=== PATIENT | female | born 1965 | race Caucasian/White ===

== ENCOUNTER 2020-10-02 12:03 | Outpatient (REF) | payer OTHER, SELFPAY | END 2020-10-02 12:04 | disposition home or self-care (01) | LOC: HO.WFDLNP 12:03 | PROVIDERS: Visit Provider Internal Medicine | DX: Z20.828 Contact with and (suspected) exposure to other viral communicable diseases (principal) | CPT/HCPCS: U0003 ==

== ENCOUNTER 2021-04-13 06:47 | Outpatient (REF) | payer OTHER, SELFPAY ==
[2021-04-13 12:08] LABS: MANUAL DIFF FLAG NO
[2021-04-13 12:20] LABS: Basophils Absolute Auto 0.1 X10*3/uL (0.0-0.2); Basophils Percent Auto 1.6 % (0-2); Eosinophils Absolute Auto 0.1 X10*3/uL (0.0-0.4); Eosinophils Percent Auto 2.1 % (0-4); Hematocrit 46.2 % (37-47); Hemoglobin 13.9 g/dl (12.0-16.0); Imm Gran Abs Auto 0.02 X10*3/uL (0.00-0.03); Imm Gran Pct Auto 0.5 % (0.0-0.4); Lymphocytes Absolute Auto 1.3 X10*3/uL (1.2-4.9); Lymphocytes Percent Auto 30.6 % (20-40); Mean Corpuscular HGB Conc 30.1 g/dl (31.0-35.0); Mean Corpuscular Hemoglobin 30.2 pg (27.0-33.0); Mean Corpuscular Volume 100.4 fL (80-98); Mean Platelet Volume 12.2 fL (9.4-12.3); Monocytes Absolute Auto 0.4 X10*3/uL (0.1-1.2); Monocytes Percent Auto 8.6 % (2-11); Neutrophils Absolute Auto 2.4 X10*3/uL (2.0-8.3); Neutrophils Percent Auto 56.6 % (45-73); Platelet Count 258 X10*3/uL (160-400); Red Cell Distribution Width 11.8 % (11.0-16.0); White Blood Count 4.3 X10*3/uL (4.8-10.8)
[2021-04-13 12:44] LABS: Alanine Aminotransferase 16 U/L (0-31); Albumin Level 4.3 g/dL (3.5-5.0); Alkaline Phosphatase 40 U/L (39-117); Anion Gap 13 (12-20); Aspartate Amino Transferase 17 U/L (5-31); Bilirubin Total 0.6 mg/dL (0.0-1.0); Blood Urea Nitrogen 15 mg/dL (9-16); Calcium 9.2 mg/dL (8.4-10.2); Carbon Dioxide 25 mmol/L (22-29); Chloride 108 mmol/L (96-108); Cholesterol 200 mg/dL; Estimated Glomerular Filt Rate > 60; Glucose Fasting 93 mg/dL (60-99); HDL Cholesterol 38 mg/dL; LDL Cholesterol Calculated 138 mg/dl; Potassium 4.8 mmol/L (3.3-5.1); Sodium 141 mmol/L (135-145); Total Protein 7.3 g/dL (6.5-8.0); Triglycerides 124 mg/dL
[2021-04-13 12:47] LABS: Vitamin D 25-OH Total 46.2 ng/mL (>30)
== END 2021-04-13 06:48 | disposition home or self-care (01) ==
LOC: HO.HMGCLDS 06:47
PROVIDERS: PCP Internal Medicine; Visit Provider Internal Medicine
DX: I10 Essential (primary) hypertension (principal); E78.5 Hyperlipidemia, unspecified; E55.9 Vitamin D deficiency, unspecified
CPT/HCPCS: 36415; 80053; 80061; 82306; 85025

== ENCOUNTER 2021-10-22 06:03 | Outpatient (REF) | payer BC, SELFPAY ==
[2021-10-22 12:31] LABS: Alanine Aminotransferase 19 U/L (0-31); Anion Gap 11 (12-20); Aspartate Amino Transferase 16 U/L (5-31); Blood Urea Nitrogen 23 mg/dL (9-16); Calcium 9.5 mg/dL (8.4-10.2); Carbon Dioxide 25 mmol/L (22-29); Chloride 108 mmol/L (96-108); Cholesterol 185 mg/dL; Estimated Glomerular Filt Rate 57; Glucose Fasting 105 mg/dL (60-99); HDL Cholesterol 38 mg/dL; LDL Cholesterol Calculated 121 mg/dl; Potassium 4.2 mmol/L (3.3-5.1); Sodium 140 mmol/L (135-145); Triglycerides 133 mg/dL
== END 2021-10-22 06:04 | disposition home or self-care (01) ==
LOC: HO.HMGCLDS 06:03
PROVIDERS: PCP Internal Medicine; Visit Provider Internal Medicine
DX: E66.09 Other obesity due to excess calories (principal); E55.9 Vitamin D deficiency, unspecified; E78.5 Hyperlipidemia, unspecified; I10 Essential (primary) hypertension; Z68.33 Body mass index [BMI] 33.0-33.9, adult
CPT/HCPCS: 36415; 80048; 80061; 82306; 84450; 84460

== ENCOUNTER 2021-11-10 08:51 | Emergency (ER) | payer BC, SELFPAY ==
--- NOTE | ~2021-11-10 | CT_ITS ---
EXAMINATION: CT ABDOMEN AND PELVIS WITH CONTRAST CLINICAL INFORMATION: epigastric abd pain, elevated lipase COMPARISON: None TECHNIQUE: Multidetector volumetric images were obtained from the superior aspect of the liver through the pubic symphysis following administration 85 mL of Omnipaque 350 intravenous contrast. Sagittal and coronal reformatted images were obtained on the technologist's workstation. Oral contrast: No This CT examination was performed using dose optimization techniques as appropriate, variously including the following: *Automated exposure control *Adjustment of mA and/or kV according to patient size (this includes techniques or standardized protocols for targeted exams where dose is matched to indication/reason for exam; i.e. extremities or head) *Use of iterative reconstruction technique DLP: 598 mGy-cm FINDINGS: LUNG BASES: The visualized lung bases are unremarkable. LIVER, GALLBLADDER, AND BILIARY TREE: The liver is normal in size, shape, and attenuation. No focal hepatic lesion or biliary ductal dilatation is present. The gallbladder is unremarkable with no evidence of radiopaque gallstones, gallbladder wall thickening, or obvious pericholecystic inflammatory changes. PANCREAS: There is very subtle peripancreatic fat stranding which could be due to mild interstitial pancreatitis. No surrounding fluid collections or abnormal parenchymal attenuation. No ductal dilatation or appreciable pancreatic lesions. No pancreatic calcifications. SPLEEN: Unremarkable. ADRENAL GLANDS: Unremarkable. KIDNEYS AND URETERS: The kidneys are normal in size, shape, and attenuation. No hydronephrosis, hydroureter, or calculi seen. No perinephric stranding. A subcentimeter (5 mm) focus of hypoattenuation at the lower pole of the right kidney is too small to characterize but statistically favored to correspond to a cyst. No imaging follow-up recommended. Trace contrast material is present within the renal collecting systems and limits sensitivity for punctate calculi. BLADDER: Unremarkable. GASTROINTESTINAL TRACT: Stomach, small bowel, and colon are normal in caliber. No bowel wall thickening or surrounding inflammatory changes. Appendix is normal. No intraperitoneal free fluid or free air. Mild diverticulosis is evident in the descending colon. ABDOMINAL WALL: No significant hernia is appreciated. LYMPH NODES: Normal. VASCULAR: Unremarkable. PELVIC VISCERA: An IUD is appropriately situated within the uterus. Uterus is normal in size and contour. No adnexal lesions are identified. OSSEOUS STRUCTURES: Moderate to severe degenerative spondylosis in the lower lumbar spine with prominent posterior disc osteophyte complexes at L4-L5 and L5-S1. Mild to moderate osteophytes in the hips. Mild left convex lumbar scoliosis CT/CT abdomen pelvis w con IMPRESSION: Very subtle peripancreatic fat stranding which could be due to mild interstitial pancreatitis. No peripancreatic fluid collections, ductal dilatation, or calcifications. Mild colonic diverticulosis without evidence of acute diverticulitis. Fleischner guidelines were followed.
[2021-11-10 10:01] VITALS: BP 139/95; PULSE 79; RESP 18; TEMP 36.9; O2SAT 94; BMI 35.1
[2021-11-10 12:28] LABS: Appearance Urine CLEAR; Color Urine YELLOW; Glucose Urine UA NEG (NEG); Leukocyte Esterase Urine NEG (NEG); Nitrite Urine NEG (NEG); Specific Gravity - Urine <= 1.005 (1.005-1.025); Urine Blood NEG (NEG); Urine Ketones NEG (NEG); Urine Protein NEG (NEG-TRACE)
--- NOTE | 2021-11-10 12:41 | ED.ABDPAIN ---
HPI - Abdominal Pain General Chief Complaint: Abdominal Pain Stated Complaint: abd pain Time Seen by Provider: 11/10/21 12:40 Source: patient Mode of arrival: ambulatory Limitations: no limitations History of Present Illness HPI narrative: 56 y/o female with history of HTN, HLD, chronic low back pain due to DJD, bilateral carpal tunnel syndrome who presents to the ER from home c/o upper abdominal pain and bloating for the last 3 days. She has been nauseated but not vomited. She describes the pain as burning and gnawing. At times it is constant and lasts a while and other times it comes and goes. MD elicited complaint: abdominal pain Pertinent past history: none Onset (ago): day(s) (3) Pain Consistency: constant Location: epigastric Severity: moderate Quality: aching Radiation: none Related Data Home Medications Medication Instructions Recorded Confirmed glucosamine [id number] 1 tab PO DAILY 04/17/21 04/17/21 pramod 1,500 mg-400 unit-100 mg tablet (Osteo Bi-Flex (5-Loxin)) Previous Rx's Medication Instructions Recorded celecoxib 400 mg capsule (Celebrex) 400 mg PO DAILY #30 cap 10/11/21 cholecalciferol (vitamin D3) 50 50 mcg PO DAILY #90 cap 10/26/21 mcg (2,000 unit) capsule lisinopril 20 mg tablet 20 mg PO DAILY #90 tab 10/26/21 phentermine 37.5 mg capsule 37.5 mg PO DAILY #30 cap 10/26/21 simvastatin 10 mg tablet 10 mg PO BEDTIME #90 tab 10/26/21 hydrocodone 5 mg-acetaminophen 325 1 tab PO Q4H PRN #10 tab 11/10/21 mg tablet Allergies Allergy/AdvReac Type Severity Reaction Status Date / Time No Known Allergies Allergy Verified 11/10/21 10:01 Physical Exam Vital Signs: Vital Signs: Last Vital Signs Temp 98.9 F 11/10/21 13:24 Pulse 73 11/10/21 13:24 Resp 17 11/10/21 13:24 BP 144/66 H 11/10/21 13:24 Pulse Ox 97 11/10/21 13:24 BMI result Body Mass Index 35.1 Course Course Course Narrative: 56-year-old female with a history of obesity, HTN, HLD who presents to the ER with 3 days of upper abdominal pain that radiates to her back as well as some bloating and nausea. She denies any fevers, right upper quadrant pain, vomiting. She states the pain radiates up into the chest and around to her back. He has burning and gnawing, possible GERD or gastritis. May also be consistent with pancreatitis so will check LFTs and lipase. Will give GI cocktail and reassess. Will check labs an EKG. Doubt ACS. Reevaluation(s) Reevaluation #1: LFTs are normal. CBC is normal. Her lipase is elevated 436. She is a nondrinker and reports only being on lisinopril and Zetia for her home medications. She has not been on any recent antibiotics and does not take any supplements. Will get a CT scan for further evaluation of pancreatitis. She reports ongoing pain after GI cocktail will give a dose of IV morphine. Reevaluation #2: CT scan is showing a very subtle peripancreatic fat stranding which could be due to mild interstitial pancreatitis. There are no peripancreatic fluid collections or dilatation. Her biliary tree and gallbladder are normal without gallstones. Etiology of her mild pancreatitis is unknown. At this time her pain is well controlled and she would like to be discharged home. We discussed the diagnosis and management and need for follow-up. We also discussed if she needs to come back to the ER for worsening symptoms. Advised to start a clear liquid diet and slowly advanced over the next few days as tolerated. Stable for DC with pain control and GI follow-up. MDM - Abdominal Pain Medical Records Attestation: I reviewed the patient's medical records. Lab Data Result diagrams: 11/10/21 14:08 11/10/21 14:08 Labs: Lab Results 11/10/21 11/10/21 11/10/21 Range/Units 12:18 14:08 14:08 WBC 7.8 (4.8-10.8) X10*3/uL RBC 4.73 (4.20-5.50) X10*6/uL Hgb 14.6 (12.0-16.0) g/dl Hct 46.0 (37.0-47.0) % MCV 97.3 (80.0-98.0) fL MCH 30.9 (27.0-33.0) pg MCHC 31.7 (31.0-35.0) g/dl RDW 11.7 (11.0-16.0) % Plt Count 261 (160-400) X10*3/uL MPV 12.0 (9.4-12.3) fL Immature Gran % (Auto) 0.4 (0.0-0.4) % Neut % (Auto) 72.3 (45-73) % Lymph % (Auto) 19.9 L (20-40) % [place] % (Auto) 5.7 (2-11) % Eos % (Auto) 1.1 (0-4) % Baso % (Auto) 0.6 (0-2) % Lymph # (Auto) 1.6 (1.2-4.9) X10*3/uL [place] # (Auto) 0.5 (0.1-1.2) X10*3/uL Eos # (Auto) 0.1 (0.0-0.4) X10*3/uL Baso # (Auto) 0.1 (0.0-0.2) X10*3/uL Abs Immat Gran (auto) 0.03 (0.00-0.03) X10*3/uL Absolute Neuts (auto) 5.7 (2.0-8.3) x10*3/uL Absolute Nucleated RBC 0.000 (0.0-0.012) X10*3/uL Nucleated RBC % (auto) 0.0 (0.0-0.2) /100WBC Sodium 141 (135-145) mmol/L Potassium 4.0 (3.3-5.1) mmol/L Chloride 106 (96-108) mmol/L Carbon Dioxide 28 (22-29) mmol/L Anion Gap 11 L (12-20) BUN 18 H (9-16) mg/dL Creatinine 0.91 (0.5-1.4) mg/dL Estim Creat Clear Calc 71.5 Estimated GFR > 60 Random Glucose 105 (60-115) mg/dL Calcium 9.5 (8.4-10.2) mg/dL Magnesium 2.2 (1.6-2.6) mg/dL Total Bilirubin 0.8 (0.0-1.0) mg/dL Direct Bilirubin 0.3 (0.0-0.5) mg/dL AST 13 (5-31) U/L ALT 13 (0-31) U/L Alkaline Phosphatase 38 L (39-117) U/L Total Protein 7.6 (6.5-8.0) g/dL Albumin 4.2 (3.5-5.0) g/dL Lipase 436 H (8-78) U/L Urine Color YELLOW Urine Appearance CLEAR Urine pH 6.0 (5.0-8.0) Ur Specific [place] <= 1.005 (1.005-1.025) Urine Protein NEG (NEG-TRACE) MG/DL Urine Glucose (UA) NEG (NEG) MG/DL Urine Ketones NEG (NEG) MG/DL Urine Blood NEG (NEG) Urine Nitrite NEG (NEG) Ur Leukocyte Esterase NEG (NEG) COVID-19 (ANDRY) (Negative) COVID-19 Clin Com 11/10/21 Range/Units 14:08 WBC (4.8-10.8) X10*3/uL RBC (4.20-5.50) X10*6/uL Hgb (12.0-16.0) g/dl Hct (37.0-47.0) % MCV (80.0-98.0) fL MCH (27.0-33.0) pg MCHC (31.0-35.0) g/dl RDW (11.0-16.0) % Plt Count (160-400) X10*3/uL MPV (9.4-12.3) fL Immature Gran % (Auto) (0.0-0.4) % Neut % (Auto) (45-73) % Lymph % (Auto) (20-40) % [place] % (Auto) (2-11) % Eos % (Auto) (0-4) % Baso % (Auto) (0-2) % Lymph # (Auto) (1.2-4.9) X10*3/uL [place] # (Auto) (0.1-1.2) X10*3/uL Eos # (Auto) (0.0-0.4) X10*3/uL Baso # (Auto) (0.0-0.2) X10*3/uL Abs Immat Gran (auto) (0.00-0.03) X10*3/uL Absolute Neuts (auto) (2.0-8.3) x10*3/uL Absolute Nucleated RBC (0.0-0.012) X10*3/uL Nucleated RBC % (auto) (0.0-0.2) /100WBC Sodium (135-145) mmol/L Potassium (3.3-5.1) mmol/L Chloride (96-108) mmol/L Carbon Dioxide (22-29) mmol/L Anion Gap (12-20) BUN (9-16) mg/dL Creatinine (0.5-1.4) mg/dL Estim Creat Clear Calc Estimated GFR Random Glucose (60-115) mg/dL Calcium (8.4-10.2) mg/dL Magnesium (1.6-2.6) mg/dL Total Bilirubin (0.0-1.0) mg/dL Direct Bilirubin (0.0-0.5) mg/dL AST (5-31) U/L ALT (0-31) U/L Alkaline Phosphatase (39-117) U/L Total Protein (6.5-8.0) g/dL Albumin (3.5-5.0) g/dL Lipase (8-78) U/L Urine Color Urine Appearance Urine pH (5.0-8.0) Ur Specific [place] (1.005-1.025) Urine Protein (NEG-TRACE) MG/DL Urine Glucose (UA) (NEG) MG/DL Urine Ketones (NEG) MG/DL Urine Blood (NEG) Urine Nitrite (NEG) Ur Leukocyte Esterase (NEG) COVID-19 (ANDRY) Negative (Negative) COVID-19 Clin Com See Note ECG Data Attestation: I personally reviewed and interpreted this ECG as follows: ECG interpretation date: 11/10/21 ECG interpretation time: 17:19 Prior ECG tracings: available for review Interpretation: Normal sinus rhythm, heart rate 70 beats per minute, normal TN interval, normal QTC, no ST segment elevations or depressions. Normal ECG. Critical Care Time Critical Care Time Critical Care Time: No Discharge Plan Discharge Clinical Impression: Acute pancreatitis Patient Disposition: Home, Self-Care Instructions: Pancreatitis (ED) Additional Instructions: Your labs and CT scan today showed evidence of mild pancreatitis. Cause is unknown at this time. Recommend clear liquid diet for the next 24-48 hours. Slowly introduced bland and low-fat foods as tolerated. Recommend following up with GI this week. Name & number below. Follow-up with your doctor this week as well. If you develop new or worsening symptoms call 911 or come back to the ER for further evaluation. Prescriptions: New hydrocodone-acetaminophen 5-325 mg tablet 1 tab PO Q4H PRN (Reason: pain) Qty: 10 RF: 0 No Action celecoxib [Celebrex] 400 mg capsule 400 mg PO DAILY Qty: 30 RF: 4 [id number] serr [Osteo Bi-Flex (5-Loxin)] 1,500-400-100 mg-unit-mg tablet 1 tab PO DAILY RF: 0 cholecalciferol (vitamin D3) 50 mcg (2,000 unit) capsule 50 mcg PO DAILY Qty: 90 RF: 1 lisinopril 20 mg tablet 20 mg PO DAILY Qty: 90 RF: 2 simvastatin 10 mg tablet 10 mg PO BEDTIME Qty: 90 RF: 2 phentermine 37.5 mg capsule 37.5 mg PO DAILY Qty: 30 RF: 0 Referrals: Ria Tejada MD [Physician] - 2 days (Idiopathic pancreatitis) [facility] Past Medical History Medical History Carpal tunnel syndrome, bilateral Dyslipidemia Essential hypertension Multilevel degenerative disc disease Obesity Vitamin D deficiency Surgical History History of ankle surgery History of back surgery History of lumbosacral spine surgery Family History Family History Father Myocardial infarction CVD (cardiovascular disease) Mother Lymphoma Maternal Grandfather No problems noted. Maternal Grandmother No problems noted. Paternal Grandfather No problems noted. Paternal Grandmother No problems noted. Brother No problems noted. Brother No problems noted. Brother No problems noted. Sister No problems noted. Son No problems noted. Social History Social History Housing: Apartment Alcohol intake: never Patient Tobacco Use Status: Former Tobacco user Years Smoked: 11 yrs e-Cigarette/Vaping Use: Never Used Second Hand Smoke Exposure: No Use of substances other than those prescribed or required for medical reasons: No Advance Directives: No Advance Directives Information Provided: No service: No Current occupational status: employed Current occupation: [employer] Current occupational exposures/hazards: No
--- NOTE | 2021-11-10 12:49 | ECG_ITS ---
Test Reason : abd pain Blood Pressure : / mmHG Vent. Rate : 070 BPM Atrial Rate : 070 BPM P-R Int : 142 ms QRS Dur : 088 ms QT Int : 376 ms P-R-T Axes : 040 -04 037 degrees QTc Int : 406 ms Normal sinus rhythm Normal ECG No previous ECGs available Referred By: Lisa Swanson Electronically Signed By:Sagar Samayoa
[2021-11-10] MEDS: Omeprazole 40 MG CAPSULE.DR PO (13:19)
[2021-11-10] MEDS: Magnesium Hydrox/Alum Hydrox 30 ML ORAL.SUSP PO (13:20)
[2021-11-10] MEDS: Lidocaine HCl Viscous 2 % 15 ML SOLUTION MUCOUS MEM (13:20)
[2021-11-10] MEDS: PHENobarb/Hyoscy/Atropine/Scop 10 ML ELIXIR PO (13:20)
[2021-11-10 13:24] VITALS: BP 144/66; PULSE 73; RESP 17; TEMP 37.2; O2SAT 97
[2021-11-10 14:13] LABS: MANUAL DIFF FLAG NO
[2021-11-10 14:16] LABS: Basophils Absolute Auto 0.1 X10*3/uL (0.0-0.2); Basophils Percent Auto 0.6 % (0-2); Eosinophils Absolute Auto 0.1 X10*3/uL (0.0-0.4); Eosinophils Percent Auto 1.1 % (0-4); Hemoglobin 14.6 g/dl (12.0-16.0); Imm Gran Abs Auto 0.03 X10*3/uL (0.00-0.03); Imm Gran Pct Auto 0.4 % (0.0-0.4); Lymphocytes Absolute Auto 1.6 X10*3/uL (1.2-4.9); Lymphocytes Percent Auto 19.9 % (20-40); Mean Corpuscular HGB Conc 31.7 g/dl (31.0-35.0); Mean Corpuscular Hemoglobin 30.9 pg (27.0-33.0); Mean Corpuscular Volume 97.3 fL (80.0-98.0); Monocytes Absolute Auto 0.5 X10*3/uL (0.1-1.2); Monocytes Percent Auto 5.7 % (2-11); Neutrophils Absolute Auto 5.7 x10*3/uL (2.0-8.3); Neutrophils Percent Auto 72.3 % (45-73); Platelet Count 261 X10*3/uL (160-400); Red Blood Count 4.73 X10*6/uL (4.20-5.50); Red Cell Distribution Width 11.7 % (11.0-16.0); White Blood Count 7.8 X10*3/uL (4.8-10.8)
[2021-11-10 14:32] LABS: Alanine Aminotransferase 13 U/L (0-31); Albumin Level 4.2 g/dL (3.5-5.0); Alkaline Phosphatase 38 U/L (39-117); Anion Gap 11 (12-20); Aspartate Amino Transferase 13 U/L (5-31); Bilirubin Direct 0.3 mg/dL (0.0-0.5); Bilirubin Total 0.8 mg/dL (0.0-1.0); Blood Urea Nitrogen 18 mg/dL (9-16); Calcium 9.5 mg/dL (8.4-10.2); Carbon Dioxide 28 mmol/L (22-29); Chloride 106 mmol/L (96-108); Creatinine Clr Calc Pharmacy 71.5; Estimated Glomerular Filt Rate > 60; Glucose Random 105 mg/dL (60-115); Lipase 436 U/L (8-78); Magnesium 2.2 mg/dL (1.6-2.6); Sodium 141 mmol/L (135-145); Total Protein 7.6 g/dL (6.5-8.0)
[2021-11-10 14:34] LABS: COVID-19 Test Negative (Negative)
[2021-11-10] MEDS: iohexoL 300 MG/ML 100 ML INFUS..BTL 85 ML IV (15:15)
[2021-11-10] MEDS: 0.9 % Sodium Chloride 1,000 ML 999 ML IVCONT (15:35)
[2021-11-10] MEDS: Morphine Sulfate 4 MG/ML CARTRIDGE IVPUSH (15:36)
== END 2021-11-10 17:48 | disposition home or self-care (01) ==
PROVIDERS: Physician Assistant; Emergency Provider Emergency Medicine; PCP Internal Medicine
DX: K85.90 Acute pancreatitis without necrosis or infection, unspecified (principal); R10.13 Epigastric pain; Z79.899 Other long term (current) drug therapy; Z20.822 Contact with and (suspected) exposure to COVID-19
CPT/HCPCS: 36415; 74177; 80048; 80076; 81003; 83690; 83735; 85025; 87635; 93005; 96361; 96374; 99284; J2270; Q9967

== ENCOUNTER 2023-01-27 07:06 | Outpatient (REF) | payer BC, SELFPAY ==
[2023-01-27 12:52] LABS: Alanine Aminotransferase 15 U/L (0-31); Anion Gap 13 (12-20); Aspartate Amino Transferase 12 U/L (5-31); Blood Urea Nitrogen 24 mg/dL (9-16); Calcium 9.2 mg/dL (8.4-10.2); Carbon Dioxide 24 mmol/L (22-29); Chloride 109 mmol/L (96-108); Cholesterol 209 mg/dL; Estimated Glomerular Filt Rate 51; Glucose Fasting 137 mg/dL (60-99); HDL Cholesterol 39 mg/dL; LDL Cholesterol Calculated 133 mg/dl; Potassium 4.4 mmol/L (3.3-5.1); Sodium 142 mmol/L (135-145); Triglycerides 189 mg/dL; Vitamin D 25-OH Total 26.9 ng/mL (>30)
== END 2023-01-27 07:07 | disposition home or self-care (01) ==
LOC: HO.HMGCLDS 07:06
PROVIDERS: PCP Internal Medicine; Visit Provider Internal Medicine
DX: E78.5 Hyperlipidemia, unspecified (principal); I10 Essential (primary) hypertension; Z78.0 Asymptomatic menopausal state
CPT/HCPCS: 36415; 80048; 80061; 82306; 84450; 84460

== ENCOUNTER 2023-06-19 13:25 | Outpatient (AMB) | payer BC, SELFPAY ==
--- NOTE | 2023-06-19 13:29 | A.OFFPC_ITS ---
Vital Signs 06/19/23 13:30 Height 5 ft 2 in Weight 199 lb BMI 36.4 BP 132/80 Blood Pressure Location Rt brachial Position Sitting Pulse 80 Pulse Source Pulse Oximeter Pulse Oximetry (%) 95 Oxygen Delivery Method Room Air Intake Visit Reasons: follow up medication Intake Note: Pt is here today to f/u med Allergies No Known Allergies Allergy (Verified 06/19/23 13:52) Medication List - Last Reconciled 06/19/23 by Chelsea Bar MD celecoxib (Celebrex) 400 mg PO DAILY cholecalciferol (vitamin D3) 1,250 mcg PO QWEEK 3 months lisinopril 20 mg PO DAILY simvastatin 20 mg PO BEDTIME Tobacco use date assessed: 06/19/23 Dental Screening Dental Screen Date: 06/19/23 Did you have a dental visit in the last 12 months?: No Was dental information given to patient?: Patient declined HPI follow up medication 2 HPI Details 57-year-old lady here today for follow-up on her diabetes mellitus, hypertension dyslipidemia. Last hemoglobin A1c at in March of 2023 was at 5.9%. She is currently not on any medication to treat her diabetes and is trying to control it through diet and exercise and lifestyle modification. She is also currently taking simvastatin and vitamin-D 3 supplements as well as lisinopril, with blood pressure controlled at present time. Has been feeling well with no complaints at present time. [facility] Medical History Carpal tunnel syndrome, bilateral Dyslipidemia Essential hypertension Multilevel degenerative disc disease Obesity Type 2 diabetes mellitus without complication, with no history of insulin use Vitamin D deficiency Surgical History History of ankle surgery History of back surgery History of lumbosacral spine surgery Family History Father Myocardial infarction CVD (cardiovascular disease) Mother Lymphoma Maternal Grandfather No problems noted. Maternal Grandmother No problems noted. Paternal Grandfather No problems noted. Paternal Grandmother No problems noted. Brother No problems noted. Brother No problems noted. Brother No problems noted. Sister No problems noted. Son No problems noted. Social History Housing: Apartment Alcohol intake: never Patient Tobacco Use Status: Former Tobacco user Years Smoked: 11 yrs e-Cigarette/Vaping Use: Never Used Second Hand Smoke Exposure: No service: No Current occupational status: employed Current occupation: [employer] Current occupational exposures/hazards: No Cognitive needs: No Hearing needs: No Vision needs: No Questionnaire Thrive Questionnaire Date Thrive assessed: 03/18/23 RUTH-7 AMB Questionnaire RUTH-7 Date RUTH - 7 assessed: 03/18/23 Source: Developed by Drs. Cristobal Blair, Rhonda Kitchen, Danny Tam and colleagues, with an educational louis from [employer]. Review of Systems Const Denies body aches, Denies fever(s), Denies headache(s) and Denies weakness Eyes Details: Goes to [facility] for her routine eye exam, complains of left eye frequently tearing up ENT Denies dizziness, Denies headache(s), Denies nasal congestion, Denies nasal discharge and Denies sore throat Card Denies chest pain, Denies lightheadedness, Denies palpitations and Denies dyspnea Resp Denies chest congestion, Denies cough and Denies dyspnea GI Denies abdominal pain, Denies change in bowel habits and Denies heartburn Neuro Denies dizziness, Denies headache(s) and Denies weakness Psych Reports no additional complaints Endo Denies polydipsia, Denies polyuria and Denies palpitations Physical exam (Primary Care) Vital Signs: Last Vital Signs Pulse 80 06/19/23 13:30 BP 132/80 06/19/23 13:30 Pulse Ox 95 06/19/23 13:30 Oxygen Delivery Method Room Air 06/19/23 13:30 BMI result Body Mass Index 36.4 Tobacco/Smoking Status: Tobacco use Status Tobacco use date assessed 06/19/23 06/19/23 13:34 Patient Tobacco Use Status Former Tobacco user 06/19/23 13:34 e-Cigarette/Vaping Use Never Used 06/19/23 13:34 Thrive Assessment: Date of Thrive Assessment Date Thrive assessed 03/18/23 06/19/23 13:34 Const General: healthy appearing and no acute distress Nutritional Appearance: obese Orientation/consciousness: patient oriented x3 Limitations: no limitations HENMT Ears: external ears normal, TM's normal bilaterally and EAC's normal Mouth: Normal oral and palatal mucosa present, oropharynx normal and moist mucous membranes Neck Neck: Yes full ROM, Yes no lymphadenopathy and Yes supple Thyroid: Thyroid normal Resp Auscultation: clear to auscultation bilaterally Cardio Rate: regular rate Rhythm: regular rhythm Heart sounds: S1 normal heart sound present and S2 normal heart sound present GI Inspection: Yes obesity Palpation (GI): Soft to palpation, nontender, no guarding and no masses Auscultation: normal bowel sounds General: Yes no CVA tenderness and Yes deferred Back/Spine/Pelvis Back: no CVA tenderness and No back tenderness Neuro General: patient oriented x3, gait normal, moves all extremities, no focal motor deficits and CN's II-XI intact bilaterally Extrem General: Yes normal to inspection, Yes full ROM, Yes no joint enlargement, Yes no calf tenderness and Yes normal gait Assessment and Plan Assessment & Plan (1) Type 2 diabetes mellitus without complication, with no history of insulin use: Code(s): E11.9 - Type 2 diabetes mellitus without complications Plan: Latest hemoglobin A1c from March 2023 was at 5.9%, currently of medications at present time, continue with weight loss, adherence to healthy eating habits, regular exercise. Repeat another hemoglobin A1c in a month, labs already ordered. Wanted to get her yearly flu shots, yearly diabetes retinopathy screening and inspect feet to check for any lesions. (2) Obesity: Code(s): E66.9 - Obesity, unspecified Qualifiers: Body mass index: BMI 33.0-33.9 Obesity classification: adult class 1 (BMI 30 - 34.9) Obesity type: due to excess calories Serious obesity comorbidity presence: without serious comorbidity Qualified Code(s): E66.09 - Other obesity due to excess calories; Z68.33 - Body mass index [BMI] 33.0-33.9, adult Plan: Discussed need to increase activity and wt reduction. Recommended focusing on improving your health instead of dieting. : Eat Mediterranean diet, limit foods high in fat, sugar, and calories, eat slowly, pay attention to portion sizes, plan your meals ahead of time, start regular physical activity 150 minutes of moderate intensity exercise or 90 minutes/week of vigorous exercise and increase water intake. (3) Vitamin D deficiency: Code(s): E55.9 - Vitamin D deficiency, unspecified Plan: Continue with taking vitamin-D 3 supplements, recheck vitamin-D level next month (4) Dyslipidemia: Code(s): E78.5 - Hyperlipidemia, unspecified Plan: Continue with simvastatin 20 mg at bedtime, in addition to adhering to healthy eating habits and getting regular exercise, recheck another fasting lipid panel in a month (5) Essential hypertension: Code(s): I10 - Essential (primary) hypertension Plan: Blood pressure at goal of less than 130/80. Continue with current medication. Reinforced importance of following a low sodium diet, getting regular exercise, and lowering stress levels. Coding Level of Care Code Est Pt Level 3 (18661) Diagnoses Type 2 diabetes mellitus without complication, with no history of insulin use E11.9 Obesity E66.09; Z68.33 Body mass index: BMI 33.0-33.9 Obesity classification: adult class 1 (BMI 30 - 34.9) Obesity type: due to excess calories Serious obesity comorbidity presence: without serious comorbidity Vitamin D deficiency E55.9 Dyslipidemia E78.5 Essential hypertension I10
[2023-06-19 13:30] VITALS: BP 132/80; PULSE 80; O2SAT 95; BMI 36.4
== END 2023-06-19 14:08 | disposition home or self-care (01) ==
PROVIDERS: PCP Internal Medicine; Visit Provider Internal Medicine
DX: E11.9 Type 2 diabetes mellitus without complications (principal); E66.09 Other obesity due to excess calories; Z68.33 Body mass index [BMI] 33.0-33.9, adult; E55.9 Vitamin D deficiency, unspecified; E78.5 Hyperlipidemia, unspecified; I10 Essential (primary) hypertension
CPT/HCPCS: 99213

== ENCOUNTER 2023-06-30 06:24 | Outpatient (REF) | payer BC, OTHER, SELFPAY ==
[2023-06-30 12:12] LABS: Estimated Average Glucose 123 mg/dL; Hemoglobin A1C 150.3286 umol/L; Hemoglobin A1c % 5.9 % (<6.0)
[2023-06-30 12:15] LABS: Alanine Aminotransferase 13 U/L (0-31); Albumin Level 4.1 g/dL (3.5-5.0); Alkaline Phosphatase 30 U/L (39-117); Anion Gap 11 (12-20); Aspartate Amino Transferase 15 U/L (5-31); Bilirubin Total 0.4 mg/dL (0.0-1.0); Blood Urea Nitrogen 30 mg/dL (9-16); Calcium 9.3 mg/dL (8.4-10.2); Carbon Dioxide 24 mmol/L (22-29); Chloride 109 mmol/L (96-108); Cholesterol 148 mg/dL (<200); Estimated Glomerular Filt Rate > 60; Glucose Fasting 103 mg/dL (60-99); HDL Cholesterol 37 mg/dL (>40); LDL Cholesterol Calculated 91 mg/dL (<100); Sodium 140 mmol/L (135-145); Total Protein 7.3 g/dL (6.5-8.0); Triglycerides 104 mg/dL (<150)
[2023-06-30 12:36] LABS: Vitamin D 25-OH Total 55.9 ng/mL (>30)
[2023-06-30 12:51] LABS: Microalbum/Creatinine Ratio Ur 5.1 ug/mg cr (<30)
== END 2023-06-30 06:25 | disposition home or self-care (01) ==
LOC: HO.HMGCLDS 06:24
PROVIDERS: PCP Internal Medicine; Visit Provider Internal Medicine
DX: E11.9 Type 2 diabetes mellitus without complications (principal); E55.9 Vitamin D deficiency, unspecified; E66.9 Obesity, unspecified; E78.5 Hyperlipidemia, unspecified; I10 Essential (primary) hypertension
CPT/HCPCS: 36415; 80053; 80061; 82043; 82306; 83036

== ENCOUNTER 2023-07-22 16:34 | Outpatient (AMB) | payer BC, SELFPAY ==
--- NOTE | 2023-07-22 16:31 | MHC.PC.OV ---
Intake Visit Reasons: Discuss weight loss options, ok per Dr Gilbert Intake Note: Pt is having a telehealth visit to discuss wgt loss options Allergies No Known Allergies Allergy (Verified 07/22/23 16:41) Medication List - Last Reconciled 07/22/23 by Chelsea Bar MD celecoxib (Celebrex) 400 mg PO DAILY lisinopril 20 mg PO DAILY simvastatin 20 mg PO BEDTIME Tobacco use date assessed: 07/22/23 Dental Screening Dental Screen Date: 07/22/23 Did you have a dental visit in the last 12 months?: No Was dental information given to patient?: Patient has dentist HPI Discuss weight loss options, ok per Dr Gilbert HPI Details 57-year-old lady with Dyslipidemia, hypertension, diet controlled diabetes mellitus, and obesity, here today complaining having difficulty losing her weight. She has been cutting back on lot on her carbs, eats a good breakfast, very light lunch and a very light supper, stays active and has only been able to lose maybe a couple of lb over the last several weeks. She would like to try taking phentermine again, was on it in the past given by her previous provider and was able to lose approximately 50 lb in 5 months while on the higher dose of phentermine. Denies having had any chest pain, no headache, no palpitations on the medication. COUNTS INCLUDE 234 BEDS AT THE [facility] Medical History (Updated 07/22/23 @ 16:55 by Chelsea Bar MD) Obesity (BMI 30-39.9) Type 2 diabetes mellitus without complication, with no history of insulin use Multilevel degenerative disc disease Carpal tunnel syndrome, bilateral Vitamin D deficiency Dyslipidemia Essential hypertension Surgical History History of lumbosacral spine surgery History of ankle surgery History of back surgery Family History Father Myocardial infarction CVD (cardiovascular disease) Mother Lymphoma Maternal Grandfather No problems noted. Maternal Grandmother No problems noted. Paternal Grandfather No problems noted. Paternal Grandmother No problems noted. Brother No problems noted. Brother No problems noted. Brother No problems noted. Sister No problems noted. Son No problems noted. 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 Cristobal Blair, Rhonda Kitchen, Danny Tam and colleagues, with an educational louis from [employer]. Review of Systems Const Denies fever(s), Denies headache(s) and Denies weakness Eyes Details: Goes to [facility] for her routine eye exam, complains of left eye frequently tearing up ENT Denies dizziness, Denies headache(s), Denies nasal congestion, Denies nasal discharge and Denies sore throat Card Denies chest pain, Denies lightheadedness, Denies palpitations and Denies dyspnea Resp Denies chest congestion, Denies cough and Denies dyspnea GI Denies abdominal pain, Denies change in bowel habits and Denies heartburn Reports no additional complaints Musc Reports back pain (Intermittent), Denies joint swelling and Reports stiffness Neuro Denies dizziness, Denies headache(s) and Denies weakness Psych Reports no additional complaints Endo Denies polydipsia, Denies polyuria and Denies palpitations Donnei/Lymph Reports no additional complaints Physical exam (Primary Care) Tobacco/Smoking Status: Tobacco use Status Tobacco use date assessed 07/22/23 07/22/23 16:32 Patient Tobacco Use Status Former Tobacco user 07/22/23 16:32 e-Cigarette/Vaping Use Never Used 07/22/23 16:32 Thrive Assessment: Date of Thrive Assessment Date Thrive assessed 03/18/23 07/22/23 16:32 Telehealth Telehealth Location of provider rendering services: practice address Location of patient: address on file Patient Identification confirmed using: Name, : Yes Telehealth method: video Patient verbally consented to treatment: Yes Patient verbally consented to billing insurance company: Yes Patient informed of any privacy concerns related to visit: Yes Minutes spent on Phone/Video with Pt.: 15 Results Reviewed Results Reviewed: ENTERED: 06/30/23 JEREMY KRISHNA: ORDERED: CMP Fast, Lipid Panel, Vitamin D 25-OH Test Result Flag Reference Site Sodium 140 135-145 mmol/L Potassium 4.0 3.3-5.1 mmol/L CL 109 H 96-108 mmol/L CO2 24 22-29 mmol/L Gap 11 L 12-20 BUN 30 H 9-16 mg/dL Creat 0.86 0.5-1.4 mg/dL EGFR > 60 NOTE: For -[place]une[place] individuals, multiply the result by 1.210. Chronic Kidney Disease: Estimated GFR < 60 mL/min/1.73m2 Severe Kidney Disease: Estimated GFR < 15 mL/min/1.73m2 FBS 103 H 60-99 mg/dL A fasting glucose from 100-125 mg/dl is considered impaired (pre-diabetes). CA 9.3 8.4-10.2 mg/dL Total Bili 0.4 0.0-1.0 mg/dL AST (GOT) 15 5-31 U/L ALT (GPT) 13 0-31 U/L Protein, Total 7.3 6.5-8.0 g/dL Alb 4.1 3.5-5.0 g/dL Triglyceride 104 <150 mg/dL Desirable Triglyceride: less than 150 mg/dL Borderline High Triglyceride 150-199 mg/dL High Triglyceride: 200-499 mg/dL Very High Triglyceride: greater than or equal to 5OO mg/dL Cholesterol 148 <200 mg/dL Desirable Cholesterol: less than 200 mg/dL Borderline High Cholesterol: 200-239 mg/dL High Cholesterol: greater than 239 mg/dL LDL Calculated 91 <100 mg/dL Desirable LDL: less than 100 mg/dL Near Optimal/Above Optimal LDL: 110-129 mg/dL Borderline High LDL: 130-159 mg/dL High LDL: 160-189 mg/dL Very High LDL: greater than or equal to 190 mg/dL HDL 37 L >40 mg/dL Desirable HDL: greater than 40 mg/dL Note: This HDL assay may give artificially low results in patients with liver disease. Alk Phos 30 L 39-117 U/L Vit D 25-OH Tot 55.9 >30 ng/mL Health Based Reference Values* < 20 ng/mL Deficient 20-30 ng/mL Insufficient > 30 ng/mL Sufficient Assessment and Plan Assessment & Plan (1) Obesity (BMI 30-39.9): Code(s): E66.9 - Obesity, unspecified Plan: Your BMI is above the ideal range. I deal BMI is between 18.5- 24. Recommended focusing on improving health instead of dieting. Mediterranean diet is a healthy diet that helps, limit food high in fat, sugar, and calories. Eat slowly, pay attention to portion sizes, plan your meals ahead of time, start regular physical activity, at least 150 minutes of moderate intensity exercise, or 90 minutes per week of vigorous exercise. Will try a back on phentermine 15 mg per capsule to take once a day in a.m., and combined is with diet and exercise. Follow-up in 4 weeks to see how much weight she has lost (2) Dyslipidemia: Code(s): E78.5 - Hyperlipidemia, unspecified Plan: Reviewed recent fasting lipid profile with patient with levels within normal limits except for low HDL cholesterol . Continue with simvastatin 20 mg at bedtime , in addition to adherence to low-cholesterol diet and regular exercise, at least 30 minutes 3 to 4 times a week. Advised patient to make healthy food choices, eat more fruits, vegetables, whole grains, wild caught fish and low-fat dairy. Limit amount of meat and fried or fatty food products, as well as processed foods and fast foods. Medications: New phentermine must administer 2 hours after breakfast 15 mg PO DAILY 30 caps 0RF Coding Level of Care Code Tele Est Pt Level 3 (98030) Diagnoses Obesity (BMI 30-39.9) E66.9 Dyslipidemia E78.5
== END 2023-07-22 17:01 | disposition home or self-care (01) ==
LOC: HO.HMGC 16:34
PROVIDERS: PCP Internal Medicine; Visit Provider Internal Medicine
DX: E78.5 Hyperlipidemia, unspecified (principal); E66.9 Obesity, unspecified
CPT/HCPCS: 99213

== ENCOUNTER 2023-08-21 14:16 | Outpatient (AMB) | payer BC, SELFPAY ==
[2023-08-21 14:18] VITALS: BP 110/72; PULSE 82; O2SAT 97; BMI 35.3
--- NOTE | 2023-08-21 14:18 | MHC.PC.OV ---
Vital Signs 08/21/23 14:18 Height 5 ft 2 in Weight 193 lb BMI 35.3 BP 110/72 Blood Pressure Location Lt brachial Position Sitting Pulse 82 Pulse Source Pulse Oximeter Pulse Oximetry (%) 97 Oxygen Delivery Method Room Air Intake Visit Reasons: Weight check and med follow up Intake Note: pt is here today for weight check/med f/u Allergies No Known Allergies Allergy (Verified 08/21/23 14:50) Medication List - Last Reconciled 08/21/23 by Chelsea Bar MD celecoxib (Celebrex) 400 mg PO DAILY lisinopril 20 mg PO DAILY phentermine 15 mg PO DAILY simvastatin 20 mg PO BEDTIME Tobacco use date assessed: 08/21/23 Dental Screening Dental Screen Date: 08/21/23 HPI Weight check and med follow up HPI Details 57-year-old lady with obesity, here today for follow-up after starting phentermine 15 mg per tablet approximately 2 months ago. Patient states that she has been taking the medication as directed, tolerating medication without any adverse effects noted. Patient however has only lost 6 lb since starting the medication. She has been combining it with adhering to healthy eating habits, started exercising regularly, but has not lost an appreciable amount of weight. [facility] Medical History Obesity (BMI 30-39.9) Type 2 diabetes mellitus without complication, with no history of insulin use Multilevel degenerative disc disease Carpal tunnel syndrome, bilateral Vitamin D deficiency Dyslipidemia Essential hypertension Surgical History History of lumbosacral spine surgery History of ankle surgery History of back surgery Family History Father Myocardial infarction CVD (cardiovascular disease) Mother Lymphoma Maternal Grandfather No problems noted. Maternal Grandmother No problems noted. Paternal Grandfather No problems noted. Paternal Grandmother No problems noted. Brother No problems noted. Brother No problems noted. Brother No problems noted. Sister No problems noted. Son No problems noted. 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 Cristobal Blair, Rhonda Kitchen, Danny Tam and colleagues, with an educational louis from [email or web address]. Review of Systems Const Denies fever(s), Denies headache(s) and Denies weakness Eyes Details: Goes to [facility] for her routine eye exam, complains of left eye frequently tearing up ENT Denies dizziness, Denies headache(s), Denies nasal congestion, Denies nasal discharge and Denies sore throat Card Denies chest pain, Denies lightheadedness, Denies palpitations and Denies dyspnea Resp Denies chest congestion, Denies cough and Denies dyspnea GI Denies abdominal pain, Denies change in bowel habits and Denies heartburn Reports no additional complaints Musc Reports back pain (Intermittent), Denies joint swelling and Reports stiffness Neuro Denies dizziness, Denies headache(s) and Denies weakness Psych Reports no additional complaints Endo Denies polydipsia, Denies polyuria and Denies palpitations Donnie/Lymph Reports no additional complaints Physical exam (Primary Care) Vital Signs: Last Vital Signs Pulse 82 08/21/23 14:18 BP 110/72 08/21/23 14:18 Pulse Ox 97 08/21/23 14:18 Oxygen Delivery Method Room Air 08/21/23 14:18 BMI result Body Mass Index 35.3 Tobacco/Smoking Status: Tobacco use Status Tobacco use date assessed 07/22/23 07/22/23 16:32 Patient Tobacco Use Status Former Tobacco user 07/22/23 16:32 e-Cigarette/Vaping Use Never Used 07/22/23 16:32 Thrive Assessment: Date of Thrive Assessment Date Thrive assessed 03/18/23 07/22/23 16:32 Const General: healthy appearing and no acute distress Nutritional Appearance: obese Orientation/consciousness: patient oriented x3 Limitations: no limitations HENMT Mouth: Normal oral and palatal mucosa present, oropharynx normal and moist mucous membranes Neck Neck: Yes full ROM, Yes no lymphadenopathy and Yes supple Thyroid: Thyroid normal Resp Auscultation: clear to auscultation bilaterally Cardio Rate: regular rate Rhythm: regular rhythm Heart sounds: S1 normal heart sound present and S2 normal heart sound present GI Inspection: Yes obesity Palpation (GI): Soft to palpation, nontender, no guarding and no masses Auscultation: normal bowel sounds Neuro General: patient oriented x3, gait normal, moves all extremities, no focal motor deficits and CN's II-XI intact bilaterally Extrem General: Yes normal to inspection, Yes full ROM, Yes no joint enlargement, Yes no calf tenderness and Yes normal gait Assessment and Plan Assessment & Plan (1) Obesity (BMI 30-39.9): Code(s): E66.9 - Obesity, unspecified Plan: Increased phentermine dose to 30 mg per tablet to take once a day. Continue with adhering to healthy eating habits and doing regular exercise. Will see her for follow-up in 6 weeks after starting the new medication dose Medications: Changed From phentermine must administer 2 hours after breakfast 15 mg PO DAILY 30 caps 0RF To phentermine must administer 2 hours after breakfast 15 mg (1/2 x 30 mg) PO DAILY 30 caps 1RF Coding Level of Care Code Est Pt Level 3 (43377) Diagnoses Obesity (BMI 30-39.9) E66.9
== END 2023-08-21 15:55 | disposition home or self-care (01) ==
PROVIDERS: PCP Internal Medicine; Visit Provider Internal Medicine
DX: E66.9 Obesity, unspecified (principal); Z68.35 Body mass index [BMI] 35.0-35.9, adult
CPT/HCPCS: 99213

== ENCOUNTER 2024-04-20 11:36 | Outpatient (AMB) | payer BC, SELFPAY ==
--- NOTE | 2024-04-20 12:04 | MHC.PC.OV ---
Vital Signs 04/20/24 12:05 Height 5 ft 2 in Weight 186 lb BMI 34.0 BP 104/66 Blood Pressure Location Lt brachial Position Sitting Pulse 76 Pulse Source Pulse Oximeter Pulse Oximetry (%) 98 Oxygen Delivery Method Room Air Intake Visit Reasons: weigh in Intake Note: Pt is here today for a follow up visit on weigh loss. Allergies No Known Allergies Allergy (Verified 04/20/24 12:32) Medication List - Last Reconciled 04/20/24 by Chelsea Bar MD celecoxib (Celebrex) 400 mg PO DAILY lisinopril 20 mg PO DAILY phentermine 30 mg PO DAILY simvastatin 20 mg PO BEDTIME Tobacco use date assessed: 04/20/24 Dental Screening Dental Screen Date: 04/20/24 Did you have a dental visit in the last 12 months?: No Did you have a dental problem in the last 6 months where you did not have access to dental care?: No Was dental information given to patient?: Patient declined HPI weigh in HPI Details 58-year-old lady with obesity, type 2 diabetes mellitus without complication dyslipidemia hypertension, here today for follow-up . She has been started on phentermine during last visit, to help with weight loss. Has been regularly exercising for at least 30 minutes 3 to 4 times a week, and has been compliant with recommended diet cutting back on eating lot of bread, rice, pasta. She just started taking phentermine again a about a month ago and states that she has started losing weight again. Tolerating medication well, no adverse effects reported, would like to start taking it again [facility] Medical History Obesity (BMI 30-39.9) Type 2 diabetes mellitus without complication, with no history of insulin use Multilevel degenerative disc disease Carpal tunnel syndrome, bilateral Vitamin D deficiency Dyslipidemia Essential hypertension Surgical History History of lumbosacral spine surgery History of ankle surgery History of back surgery Family History Father Myocardial infarction CVD (cardiovascular disease) Mother Lymphoma Maternal Grandfather No problems noted. Maternal Grandmother No problems noted. Paternal Grandfather No problems noted. Paternal Grandmother No problems noted. Brother No problems noted. Brother No problems noted. Brother No problems noted. Sister No problems noted. Son No problems noted. 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 1. Little interest or pleasure in doing things: not at all 2. Feeling down, depressed, or hopeless: not at all 3. Trouble falling or staying asleep, or sleeping too much: not at all 4. Feeling tired or having little energy: not at all 5. Poor appetite or overeating: not at all 6. Feeling bad about yourself - or that you are a failure or have let yourself or your family down: not at all 7. Trouble concentrating on things, such as reading the newspaper or watching television: not at all 8. Moving or speaking so slowly that other people could have noticed. Or the opposite - being so fidgety or restless that you have been moving around a lot more than usual: not at all 9. Thoughts that you would be better off or of hurting yourself in some way: not at all Total score: 0 Depression Screening Interpretation: Negative Depression Screening Done: Yes Source: Developed by Drs. Cristobal Blair, Rhonda Kitchen, Danny Tam and colleagues, with an educational louis from [employer]. Thrive Questionnaire Date Thrive assessed: 04/20/24 I am a: Patient What is your living situation today?: I have a steady place to live Within the past 12 months, did the food you bought not last and you didn't have the money to get more?: Never true Within the past 12 months, did you worry whether your food would run out before you got money to buy more?: Never true Do you have trouble paying for medicines?: No Do you have trouble getting transportation to medical appointments?: No Do you have trouble paying your heating and electricity bill?: No Do you have trouble taking care of your child, family member or friend?: No Do you have trouble with day-to-day activities such as bathing, preparing meals, shopping, managing finances, etc.?: No Are you currently unemployed and looking for a job?: No Are you interested in more education?: No Please select the resources that you would like help with: None THRIVE Score: 0 AUDIT C Alcohol Use Questionnaire (AUDIT-C) 1. How often do you have a drink containing alcohol?: Never 3. How often do you have six or more drinks on one occasion?: Never Total Score: 0 RUTH-7 AMB Questionnaire RUTH-7 Date RUTH - 7 assessed: 04/20/24 Feeling nervous, anxious, or on edge: 0 = Not at all Not being able to stop or control worryin = Not at all Worrying too much about different things: 0 = Not at all Trouble relaxin = Not at all Being so restless that it is hard to sit still: 0 = Not at all Becoming easily annoyed or irritable: 0 = Not at all Feeling afraid as if something awful might happen: 0 = Not at all Total RUTH-7 score (0-4 normal; 5-9 mild; 10-14 moderate; 15-21 severe): 0 Source: Developed by Drs. Cristobal Blair, Rhonda Kitchen, Danny Tam and colleagues, with an educational louis from [employer]. RUTH-7 Assessment Billing RUTH-7 Assessment Tool: RUTH-7 Assessment 04482 Review of Systems Const Denies fever(s), Denies headache(s) and Denies weakness Eyes Details: Goes to [facility] for her routine eye exam, complains of left eye frequently tearing up ENT Denies dizziness, Denies headache(s) and Denies nasal congestion Card Denies chest pain, Denies lightheadedness, Denies palpitations and Denies dyspnea Resp Denies chest congestion, Denies cough and Denies dyspnea GI Denies abdominal pain, Denies change in bowel habits and Denies heartburn Reports no additional complaints Musc Reports back pain (Intermittent), Denies joint swelling and Reports stiffness Neuro Denies dizziness, Denies headache(s) and Denies weakness Psych Reports no additional complaints Endo Denies polydipsia, Denies polyuria and Denies palpitations Donnie/Lymph Reports no additional complaints Physical exam (Primary Care) Vital Signs: Last Vital Signs Pulse 76 04/20/24 12:05 BP 104/66 04/20/24 12:05 Pulse Ox 98 04/20/24 12:05 Oxygen Delivery Method Room Air 04/20/24 12:05 BMI result Body Mass Index 34.0 Tobacco/Smoking Status: Tobacco use Status Tobacco use date assessed 04/20/24 04/20/24 12:12 Patient Tobacco Use Status Former Tobacco user 04/20/24 12:12 e-Cigarette/Vaping Use Never Used 04/20/24 12:12 PHQ-9: PHQ-9 Score PHQ-9: Total score 0 04/20/24 13:12 Depression Screening Interpretation: Negative Thrive Assessment: Date of Thrive Assessment Date Thrive assessed 04/20/24 04/20/24 13:12 Const General: no acute distress Nutritional Appearance: obese Orientation/consciousness: patient oriented x3 HENMT Mouth: Normal oral and palatal mucosa present, oropharynx normal and moist mucous membranes Neck Neck: Yes full ROM, Yes no lymphadenopathy and Yes supple Thyroid: Thyroid normal Resp Auscultation: clear to auscultation bilaterally Cardio Rate: regular rate Rhythm: regular rhythm Heart sounds: S1 normal heart sound present and S2 normal heart sound present GI Inspection: Yes obesity Palpation (GI): Soft to palpation, nontender, no guarding and no masses Auscultation: normal bowel sounds Neuro General: patient oriented x3, gait normal, moves all extremities, no focal motor deficits and CN's II-XI intact bilaterally Extrem General: Yes normal to inspection, Yes full ROM, Yes no joint enlargement, Yes no calf tenderness and Yes normal gait Assessment and Plan Assessment & Plan (1) Obesity (BMI 30-39.9): Code(s): E66.9 - Obesity, unspecified Plan: Tolerating phentermine, prescription sent for 30 mg taken once a day 2 hours after breakfast. Continue with regular exercise and adherence to healthy eating habits. Will see her back for physical exam and follow-up on weight loss on 07/22/2024 (2) Essential hypertension: Code(s): I10 - Essential (primary) hypertension Plan: Blood pressure at goal of less than 130/80. Continue lisinopril 20 mg daily Reinforced importance of following a low sodium diet, getting regular exercise, and lowering stress levels. (3) Dyslipidemia: Code(s): E78.5 - Hyperlipidemia, unspecified Plan: Continue with simvastatin 20 mg at bedtime, fasting lipid panel ordered (4) Type 2 diabetes mellitus without complication, with no history of insulin use: Code(s): E11.9 - Type 2 diabetes mellitus without complications Plan: Continue with adherence to healthy eating habits regular exercise, will check hemoglobin A1c, basic metabolic panel liver enzymes and fasting lipid panel today results still pending Orders: Orders Hemoglobin A1c 04/20/24 E66.9 - Obesity, unspecified, E11.9 - Type 2 diabetes mellitus without complications, E78.5 - Hyperlipidemia, unspecified, I10 - Essential (primary) hypertension Basic Metabolic Panel Fasting 04/20/24 E66.9 - Obesity, unspecified, E11.9 - Type 2 diabetes mellitus without complications, E78.5 - Hyperlipidemia, unspecified, I10 - Essential (primary) hypertension Aspartate Amino Transferase 04/20/24 E66.9 - Obesity, unspecified, E11.9 - Type 2 diabetes mellitus without complications, E78.5 - Hyperlipidemia, unspecified, I10 - Essential (primary) hypertension Alanine Aminotransferase 04/20/24 E66.9 - Obesity, unspecified, E11.9 - Type 2 diabetes mellitus without complications, E78.5 - Hyperlipidemia, unspecified, I10 - Essential (primary) hypertension Lipid Panel 04/20/24 E66.9 - Obesity, unspecified, E11.9 - Type 2 diabetes mellitus without complications, E78.5 - Hyperlipidemia, unspecified, I10 - Essential (primary) hypertension Medications: Refilled phentermine must administer 2 hours after breakfast 30 mg PO DAILY 30 caps 2RF E66.9 - Obesity, unspecified celecoxib (Celebrex) 400 mg PO DAILY 30 caps 3RF Coding Level of Care Code Est Pt Level 4 (16282) Complex EM visit Add On G2211 Diagnoses Obesity (BMI 30-39.9) E66.9 Essential hypertension I10 Dyslipidemia E78.5 Type 2 diabetes mellitus without complication, with no history of insulin use E11.9 Additional Codes RUTH-7 Assessment Billing - RUTH-7 Assessment Tool: RUTH-7 Assessment 12686 ([id number])
[2024-04-20 12:05] VITALS: BP 104/66; PULSE 76; O2SAT 98; BMI 34.0
== END 2024-04-20 12:44 | disposition home or self-care (01) ==
PROVIDERS: PCP Internal Medicine; Visit Provider Internal Medicine
DX: E11.69 Type 2 diabetes mellitus with other specified complication (principal); E66.9 Obesity, unspecified; Z68.34 Body mass index [BMI] 34.0-34.9, adult; I10 Essential (primary) hypertension; E78.5 Hyperlipidemia, unspecified
CPT/HCPCS: 99214

== ENCOUNTER 2024-07-01 06:34 | Outpatient (REF) | payer BC, SELFPAY ==
[2024-07-01 10:21] LABS: Estimated Average Glucose 117 mg/dL; Hemoglobin A1c % 5.7 % (<6.0)
[2024-07-01 10:28] LABS: Alanine Aminotransferase 14 U/L (0-31); Anion Gap 12 (12-20); Aspartate Amino Transferase 20 U/L (5-31); Blood Urea Nitrogen 22 mg/dL (9-16); Calcium 9.4 mg/dL (8.4-10.2); Carbon Dioxide 25 mmol/L (22-29); Chloride 108 mmol/L (96-108); Cholesterol 160 mg/dL (<200); Estimated Glomerular Filt Rate 60; Glucose Fasting 93 mg/dL (60-99); HDL Cholesterol 36 mg/dL (>40); LDL Cholesterol Calculated 95 mg/dL (<100); Potassium 4.4 mmol/L (3.3-5.1); Sodium 141 mmol/L (135-145); Triglycerides 148 mg/dL (<150)
== END 2024-07-01 06:35 | disposition home or self-care (01) ==
LOC: HO.HMGCLDS 06:34
PROVIDERS: PCP Internal Medicine; Visit Provider Internal Medicine
DX: E66.9 Obesity, unspecified (principal); E11.9 Type 2 diabetes mellitus without complications; E78.5 Hyperlipidemia, unspecified; I10 Essential (primary) hypertension
CPT/HCPCS: 36415; 80048; 80061; 83036; 84450; 84460

== ENCOUNTER 2024-07-22 14:59 | Outpatient (AMB) | payer BC, SELFPAY ==
--- NOTE | 2024-07-22 15:23 | MHC.PC.OV ---
Vital Signs 07/22/24 15:53 Height 5 ft 2 in Weight 180 lb BMI 32.9 BP 122/70 Blood Pressure Location Rt brachial Position Sitting Pulse 81 Pulse Source Pulse Oximeter Pulse Oximetry (%) 97 Oxygen Delivery Method Room Air Intake Visit Reasons: Annual PE (ok per AE) - see comments Intake Note: Pt is here today for her PE: cologuard 02/08/24 Allergies No Known Allergies Allergy (Verified 07/22/24 16:08) Medication List - Last Reconciled 07/22/24 by Chelsea Bar MD celecoxib (Celebrex) 400 mg PO DAILY lisinopril 20 mg PO DAILY phentermine 30 mg PO DAILY simvastatin 20 mg PO BEDTIME Tobacco use date assessed: 07/22/24 Dental Screening Dental Screen Date: 07/22/24 Did you have a dental visit in the last 12 months?: No Did you have a dental problem in the last 6 months where you did not have access to dental care?: No Was dental information given to patient?: No HPI Annual PE (ok per AE) - see comments HPI Details 58-year-old lady with obesity, type 2 diabetes mellitus without complication, dyslipidemia, hypertension, here today for physical exam. She has started exercising regularly, has been lifting weights, following a healthy diet, and has been able to lose weight. Currently taking phentermine 30 mg once a day. Takes lisinopril 20 mg daily with blood pressure stable controlled on present treatment, and is on simvastatin 20 mg at bedtime for her hyperlipidemia. Has diabetes mellitus, diet controlled, with latest hemoglobin A1c at 5.7%. Recent fasting lipids showed results within normal limits except for low HDL cholesterol at 36 mg per dL She is overdue for her screening mammogram, and cervical cancer screening. Has been referred to [facility] but missed appointment in December this year . Patient states that she will call and reschedule appointment. Up-to-date with her screening for colon cancer, had a negative Cologuard test done earlier this year. Complaining pain and stiffness in her left knee. Patient states that this likely from lifting weights. Has stopped for a while. [facility] Medical History (Updated 07/25/24 @ 12:42 by Chelsea Bra MD) Left knee pain Obesity (BMI 30-39.9) Type 2 diabetes mellitus without complication, with no history of insulin use Multilevel degenerative disc disease Carpal tunnel syndrome, bilateral Vitamin D deficiency Dyslipidemia Essential hypertension Surgical History History of lumbosacral spine surgery History of ankle surgery History of back surgery Family History Father Myocardial infarction CVD (cardiovascular disease) Mother Lymphoma Maternal Grandfather No problems noted. Maternal Grandmother No problems noted. Paternal Grandfather No problems noted. Paternal Grandmother No problems noted. Brother No problems noted. Brother No problems noted. Brother No problems noted. Sister No problems noted. Son No problems noted. Social History Housing: Apartment Alcohol intake: never Patient Tobacco Use Status: Former Tobacco user Years Smoked: 11 yrs e-Cigarette/Vaping Use: Never Used Second Hand Smoke Exposure: No service: No Current occupational status: employed Current occupation: [employer] Current occupational exposures/hazards: No Cognitive needs: No Hearing needs: No Vision needs: No Questionnaire PHQ-9 Over the last 2 weeks, how often have you been bothered by any of the following problems? 1. Little interest or pleasure in doing things: not at all 2. Feeling down, depressed, or hopeless: not at all 3. Trouble falling or staying asleep, or sleeping too much: more than half the days 4. Feeling tired or having little energy: not at all 5. Poor appetite or overeating: not at all 6. Feeling bad about yourself - or that you are a failure or have let yourself or your family down: not at all 7. Trouble concentrating on things, such as reading the newspaper or watching television: not at all 8. Moving or speaking so slowly that other people could have noticed. Or the opposite - being so fidgety or restless that you have been moving around a lot more than usual: not at all 9. Thoughts that you would be better off or of hurting yourself in some way: not at all Total score: 2 Depression Screening Interpretation: Negative Depression Screening Done: Yes 10243 - PHQ-9 Billing: Yes Source: Developed by Drs. Cristobal Blair, Rhonda Kitchen, Danny Tam and colleagues, with an educational louis from [employer]. Thrive Questionnaire Date Thrive assessed: 07/22/24 I am a: Patient What is your living situation today?: I have a steady place to live Within the past 12 months, did the food you bought not last and you didn't have the money to get more?: Never true Within the past 12 months, did you worry whether your food would run out before you got money to buy more?: Never true Do you have trouble paying for medicines?: No Do you have trouble getting transportation to medical appointments?: No Do you have trouble paying your heating and electricity bill?: No Do you have trouble taking care of your child, family member or friend?: No Do you have trouble with day-to-day activities such as bathing, preparing meals, shopping, managing finances, etc.?: No Are you currently unemployed and looking for a job?: No Are you interested in more education?: No Please select the resources that you would like help with: None Currently or been in a relationship where the following occur: No concerns reported THRIVE Score: 0 AUDIT C Alcohol Use Questionnaire (AUDIT-C) 1. How often do you have a drink containing alcohol?: Monthly or less 2. How many drinks containing alcohol do you have on a typical day when you are drinking?: 1 or 2 3. How often do you have six or more drinks on one occasion?: Never Total Score: 1 RUTH-7 AMB Questionnaire RUTH-7 Date RUTH - 7 assessed: 07/22/24 Feeling nervous, anxious, or on edge: 0 = Not at all Not being able to stop or control worryin = Not at all Worrying too much about different things: 0 = Not at all Trouble relaxin = Not at all Being so restless that it is hard to sit still: 0 = Not at all Becoming easily annoyed or irritable: 0 = Not at all Feeling afraid as if something awful might happen: 0 = Not at all Total RUTH-7 score (0-4 normal; 5-9 mild; 10-14 moderate; 15-21 severe): 0 Source: Developed by Rhonda Zhou, Danny Tam and colleagues, with an educational louis from [employer]. RUTH-7 Assessment Billing RUTH-7 Assessment Tool: RUTH-7 Assessment 31033 Review of Systems Const Denies fever(s), Denies headache(s) and Denies weakness Eyes Details: Goes to [facility] for her routine eye exam ENT Denies dizziness, Denies headache(s) and Denies nasal congestion Card Denies chest pain, Denies lightheadedness, Denies palpitations and Denies dyspnea Resp Denies chest congestion, Denies cough and Denies dyspnea GI Denies abdominal pain, Denies change in bowel habits and Denies heartburn Reports no additional complaints Musc Reports as per HPI, Denies back pain, Denies joint swelling and Reports stiffness Skin/Breast Denies breast swelling, Denies breast pain, Denies breast mass, Denies lesions and Denies rash Neuro Denies dizziness, Denies headache(s) and Denies weakness Psych Reports no additional complaints Endo Denies polydipsia, Denies polyuria and Denies palpitations Donnie/Lymph Reports no additional complaints Aller/Immun Reports no additional complaints Physical exam (Primary Care) Vital Signs: Last Vital Signs Pulse 81 07/22/24 15:53 BP 122/70 07/22/24 15:53 Pulse Ox 97 07/22/24 15:53 Oxygen Delivery Method Room Air 07/22/24 15:53 BMI result Body Mass Index 32.9 Tobacco/Smoking Status: Tobacco use Status Tobacco use date assessed 07/22/24 07/22/24 15:56 Patient Tobacco Use Status Former Tobacco user 07/22/24 15:24 e-Cigarette/Vaping Use Never Used 07/22/24 15:24 PHQ-9: PHQ-9 Score PHQ-9: Total score 3 07/25/24 12:29 Depression Screening Interpretation: Negative Thrive Assessment: Date of Thrive Assessment Date Thrive assessed 07/22/24 07/22/24 15:56 Currently or been in a relationship where the following occur: No concerns reported Advance Care Planning discussion: Completed/Scanned Date of discussion: 07/22/24 Who was present: Patient Forms completed: Health Care Proxy Time spent: 16-45 minutes Actual minutes spent: 16 Const General: no acute distress Nutritional Appearance: obese Orientation/consciousness: patient oriented x3 HENMT Mouth: Normal oral and palatal mucosa present, oropharynx normal and moist mucous membranes Eyes General: appearance normal, both eyes and all related structures Neck Neck: Yes full ROM, Yes no lymphadenopathy and Yes supple Thyroid: Thyroid normal Chest Chest palpation & inspection: normal inspection of the chest Breast/axilla palpation: normal palpation of the breasts Resp Auscultation: clear to auscultation bilaterally Cardio Rate: regular rate Rhythm: regular rhythm Heart sounds: S1 normal heart sound present and S2 normal heart sound present GI Palpation (GI): Soft to palpation, nontender, no guarding and no masses Auscultation: normal bowel sounds General: Yes no CVA tenderness and Yes deferred Back/Spine/Pelvis Back: no CVA tenderness and No back tenderness Skin General skin exam: no rashes or lesions noted Neuro General: patient oriented x3, gait normal, moves all extremities, no focal motor deficits and CN's II-XI intact bilaterally Extrem Other: Mild tenderness on palpation left knee joint, negative crepitus General: Yes normal to inspection, Yes full ROM, Yes no joint enlargement, Yes no calf tenderness and Yes normal gait Psych Appearance: grossly normal and well kempt Mental Status: mental status grossly normal Speech and movement: Normal speech and movement present Affect: normal affect Attitude: cooperative Thought process: Normal thought process present Thought content: Normal thought content present Results Reviewed Results Reviewed: Laboratory Tests 03/18/23 07/01/24 09:28 06:40 Estimat Average Glucose 117 Hgb A1c (Clinic) 6.5 H Hemoglobin A1c % 5.7 raysa: Roxann Watkins Age/Sex: 58/F : 1965 Unit#: [id number] Attend Dr: Chelsea Bar MD Re07/01/24 Status: DEP [facility] Disch: SPEC : [id number] NICHOLAS: 07/01/24 STATUS: COMP REQ : [id number] RECD: 07/01/24-[address]: Chelsea Bar MD COMP: 07/01/24 ENTERED: 07/01/[address]: ORDERED: Met Prof Fast, AST, ALT, Lipid Panel Test Result Flag Reference Sodium 141 135-145 mmol/L Potassium 4.4 3.3-5.1 mmol/L CL 108 96-108 mmol/L CO2 25 22-29 mmol/L Gap 12 12-20 BUN 22 H 9-16 mg/dL Creat 0.96 0.5-1.4 mg/dL EGFR 60 NOTE: For -Italian individuals, multiply the result by 1.210. Chronic Kidney Disease: Estimated GFR < 60 mL/min/1.73m2 Severe Kidney Disease: Estimated GFR < 15 mL/min/1.73m2 FBS 93 60-99 mg/dL CA 9.4 8.4-10.2 mg/dL AST (GOT) 20 5-31 U/L ALT (GPT) 14 0-31 U/L Triglyceride 148 <150 mg/dL Desirable Triglyceride: less than 150 mg/dL Borderline High Triglyceride 150-199 mg/dL High Triglyceride: 200-499 mg/dL Very High Triglyceride: greater than or equal to 5OO mg/dL Cholesterol 160 <200 mg/dL Desirable Cholesterol: less than 200 mg/dL Borderline High Cholesterol: 200-239 mg/dL High Cholesterol: greater than 239 mg/dL LDL Calculated 95 <100 mg/dL Desirable LDL: less than 100 mg/dL Near Optimal/Above Optimal LDL: 110-129 mg/dL Borderline High LDL: 130-159 mg/dL High LDL: 160-189 mg/dL Very High LDL: greater than or equal to 190 mg/dL HDL 36 L >40 mg/dL Desirable HDL: greater than 40 mg/dL Note: This HDL assay may give artificially low results in patients with liver disease. Assessment and Plan Assessment & Plan (1) Annual visit for general adult medical examination with abnormal findings: Code(s): Z00.01 - Encounter for general adult medical examination with abnormal findings Plan: Reviewed recent fasting lab results with patient.. Recommended dental visit every 6 months and regular eye exams, yearly. Take adequate calcium in diet and vitamin-D 3 at 2000 IU per cap once a day, in addition to regular exercises to help maintain good muscle tone and weight control. Instructed to do self-breast exam, and recommended to get yearly mammogram ,ordered today. Patient states she will call and schedule another appointment with OBGYN at [place] for her routine Pap and pelvic exam. Reminded to get her yearly flu shot and COVID booster, up-to-date with her pneumococcal vaccination. Recommended to get shingles vaccine. Up-to-date with colon cancer screening, had a negative Cologuard test done earlier this year, due again for a recheck in 2026. (2) Left knee pain: Code(s): M25.562 - Pain in left knee Qualifiers: Chronicity: acute Qualified Code(s): M25.562 - Pain in left knee Plan: Ordered x-ray of left knee, no relief with taking [id number] NSAIDs or Tylenol, not even celecoxib is helping. Orthopedic consult also obtained (3) Type 2 diabetes mellitus without complication, with no history of insulin use: Code(s): E11.9 - Type 2 diabetes mellitus without complications Plan: Diabetes mellitus well controlled through diet and exercise, with hemoglobin A1c at 5.7%, advised to continue with yearly eye exam at [facility], reminded to get COVID booster and flu shot. Already received Prevnar 20 on last visit. (4) Dyslipidemia: Code(s): E78.5 - Hyperlipidemia, unspecified Plan: Reviewed recent fasting lipid profile with patient with levels except for still persistently low HDL cholesterol. . Continue simvastatin 20 mg daily , in addition to adherence to low-cholesterol diet and regular exercise, at least 30 minutes 3 to 4 times a week. Advised patient to make healthy food choices, eat more fruits, vegetables, whole grains, wild caught fish and low-fat dairy. Limit amount of meat and fried or fatty food products, as well as processed foods and fast foods. Follow-up scheduled with repeat fasting lipid panel in 6 months. (5) Essential hypertension: Code(s): I10 - Essential (primary) hypertension Plan: Hypertension stable and controlled on lisinopril 20 mg daily (6) Obesity (BMI 30-39.9): Code(s): E66.9 - Obesity, unspecified Plan: Continue with adhering to healthy eating habits, but hold off on exercising until pain in her left knee resolves. (7) Advanced directives, counseling/discussion: Code(s): Z71.89 - Other specified counseling Plan: Initiated the conversation about Advanced Directives. Advanced Directives help patients prepare for current and future decisions about their medical treatment and place of care. Discussed with patient that it is a process where a patients current condition and prognosis are reviewed, their wishes for information regarding their illness are elicited, and likely medical dilemmas are presented and options discussed. Healthcare proxy form completed today. The form can be amended as needed, reviewed yearly and make changes as needed Orders: Orders MM tomosynthesis screening BI 07/22/24 Z12.31 - Encounter for screening mammogram for malignant neoplasm of breast XR knee LT 4V 07/22/24 M25.562 - Pain in left knee Hemoglobin A1c 01/08/25 E11.9 - Type 2 diabetes mellitus without complications, E55.9 - Vitamin D deficiency, unspecified, E66.9 - Obesity, unspecified, E78.5 - Hyperlipidemia, unspecified, I10 - Essential (primary) hypertension Alanine Aminotransferase 01/08/25 E11.9 - Type 2 diabetes mellitus without complications, E55.9 - Vitamin D deficiency, unspecified, E66.9 - Obesity, unspecified, E78.5 - Hyperlipidemia, unspecified, I10 - Essential (primary) hypertension Aspartate Amino Transferase 01/08/25 E11.9 - Type 2 diabetes mellitus without complications, E55.9 - Vitamin D deficiency, unspecified, E66.9 - Obesity, unspecified, E78.5 - Hyperlipidemia, unspecified, I10 - Essential (primary) hypertension Basic Metabolic Panel Fasting 01/08/25 E11.9 - Type 2 diabetes mellitus without complications, E55.9 - Vitamin D deficiency, unspecified, E66.9 - Obesity, unspecified, E78.5 - Hyperlipidemia, unspecified, I10 - Essential (primary) hypertension Lipid Panel 01/08/25 E11.9 - Type 2 diabetes mellitus without complications, E55.9 - Vitamin D deficiency, unspecified, E66.9 - Obesity, unspecified, E78.5 - Hyperlipidemia, unspecified, I10 - Essential (primary) hypertension Microalbumin, Random (w Creat) 01/08/25 E11.9 - Type 2 diabetes mellitus without complications, E55.9 - Vitamin D deficiency, unspecified, E66.9 - Obesity, unspecified, E78.5 - Hyperlipidemia, unspecified, I10 - Essential (primary) hypertension Vitamin D 25-OH Total 01/08/25 E11.9 - Type 2 diabetes mellitus without complications, E55.9 - Vitamin D deficiency, unspecified, E66.9 - Obesity, unspecified, E78.5 - Hyperlipidemia, unspecified, I10 - Essential (primary) hypertension Referrals Orthopedics Referral M25.562 - Pain in left knee Coding Level of Care Code Est Pt Prev Care 40-64y(59812) Diagnoses Annual visit for general adult medical examination with abnormal findings Z00.01 Acute pain of left knee M25.562 Chronicity: acute Type 2 diabetes mellitus without complication, with no history of insulin use E11.9 Dyslipidemia E78.5 Essential hypertension I10 Obesity (BMI 30-39.9) E66.9 Advanced directives, counseling/discussion Z71.89 Additional Codes RUTH-7 Assessment Billing - RUTH-7 Assessment Tool: RUTH-7 Assessment 65926 ([id number]) Vital Signs *Quality* - Advance Care Planning discussion: Completed/Scanned ([id number]) Vital Signs *Quality* - Time spent: 16-45 minutes ([id number])
[2024-07-22 15:53] VITALS: BP 122/70; PULSE 81; O2SAT 97; BMI 32.9
== END 2024-07-22 16:38 | disposition home or self-care (01) ==
PROVIDERS: PCP Internal Medicine; Visit Provider Internal Medicine
DX: Z00.00 Encounter for general adult medical examination without abnormal findings (principal); E11.9 Type 2 diabetes mellitus without complications; I10 Essential (primary) hypertension; Z68.32 Body mass index [BMI] 32.0-32.9, adult; M25.562 Pain in left knee; E78.5 Hyperlipidemia, unspecified; E66.9 Obesity, unspecified
CPT/HCPCS: 1123F; 99396; 99497

== ENCOUNTER 2024-07-22 16:25 | Outpatient (REF) | payer BC, SELFPAY ==
--- NOTE | ~2024-07-22 | XR_ITS ---
EXAMINATION: XR KNEE, LEFT CLINICAL INFORMATION: Pain in the left knee COMPARISON: X-ray left knee March 2018 TECHNIQUE: Four views of the left knee. FINDINGS: Prominent chondrocalcinosis slightly more evident on previous. Compartments otherwise intact. No effusion. XR/XR knee LT 4V IMPRESSION: Prominent chondrocalcinosis slightly more evident on previous. No joint space narrowing or evidence of secondary osteoarthritis Electronically signed by: Aldair Lovell MD 08/19/2024 06:10 AM EDT
== END 2024-07-22 16:26 | disposition home or self-care (01) ==
LOC: HO.HMGCX 16:25
PROVIDERS: PCP Internal Medicine; Visit Provider Internal Medicine
DX: M25.562 Pain in left knee (principal)
CPT/HCPCS: 73564

== ENCOUNTER 2024-08-09 14:04 | Outpatient (AMB) | payer BC, SELFPAY ==
[2024-08-09 14:09] VITALS: BMI 32.9
--- NOTE | 2024-08-09 14:09 | A.OFFVIS_ITS ---
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 Patient reports last year this started as a slight pain but gradually worsened over the past 6 months. She reports difficulty with ambulation of stairs, using the bike at the gym, flexion and extension. She express sharp pain in the anterior and posterior aspect of her left knee that is intermittent and radiates down her leg. Dr Bar advised her to take 600 mg Tylenol for Arthritis, she said this mildly helps her but then the pain returns. [facility] and says some days it helps and others it makes her knee more painful from the pressure. Denies trauma to her left knee, numbness and tingling. Allergies No Known Allergies Allergy (Verified 08/09/24 14:09) HPI HPI INVENTORY MANAGEMENT SPECIALIST-Pain in left knee: Details: Patient is a 58-year-old female who presents for evaluation of left knee pain, ongoing for approximately 2-3 years. Patient states that this started as a minor ache, but has gradually become more severe over the last few months. The patient states that this pain feels like and intense soreness, it was not sharp. The patient reports that there is a discomfort at baseline, however this pain does increase with activity. Patient reports that she has been going to the gym more frequently for the last few months, and she has noticed steady increases in her knee pain since this time. The patient also reports that she does have mild swelling in her knee at some points. No Other acute complaints or concerns at this time. [facility] Medical History (Updated 08/09/24 @ 15:33 by FLYNN Landeros) Left knee pain Obesity (BMI 30-39.9) Type 2 diabetes mellitus without complication, with no history of insulin use Multilevel degenerative disc disease Carpal tunnel syndrome, bilateral Vitamin D deficiency Dyslipidemia Essential hypertension Surgical History History of lumbosacral spine surgery History of ankle surgery History of back surgery Family History Father Myocardial infarction CVD (cardiovascular disease) Mother Lymphoma Maternal Grandfather No problems noted. Maternal Grandmother No problems noted. Paternal Grandfather No problems noted. Paternal Grandmother No problems noted. Brother No problems noted. Brother No problems noted. Brother No problems noted. Sister No problems noted. Son No problems noted. Social History (Updated 08/09/24 @ 14:10 by ADDI Garcia) Housing: Apartment Alcohol intake: current Alcohol intake frequency: holidays/special occasions only Patient Tobacco Use Status: Former Tobacco user Years Smoked: 11 yrs e-Cigarette/Vaping Use: Never Used Second Hand Smoke Exposure: No service: No Current occupational status: employed Current occupation: [employer] Current occupational exposures/hazards: No Cognitive needs: No Hearing needs: No Vision needs: No Review of Systems Const All systems reviewed & are unremarkable except as noted in HPI and below Physical Exam Vital Signs: BMI result Body Mass Index 32.9 Extrem Other: On inspection, there is no visible deformity of the left knee Mild edema No erythema, ecchymosis noted No lacerations, abrasions, open areas No evidence of infection Patient reports no tenderness to palpation in the patella, parapatellar region, medial and lateral joint line, posterior knee Patient is able to extend the left knee to 0 degrees and flex to approximately 120 degrees without difficulty No ligamentous laxity noted Distal sensation intact Capillary refill brisk Negative Ad's Results Reviewed Results Reviewed: X-rays obtained in the office today and independently reviewed by me, Emilio Jovel PA-C, demonstrate mild degenerative changes consistent with early osteoarthritis. Assessment & Plan Assessment & Plan (1) Osteoarthritis of left knee: Code(s): M17.12 - Unilateral primary osteoarthritis, left knee Category: Medical Plan 1. Osteoarthritis of left knee I discussed this condition with the patient I educated the patient about the treatment options available, the patient would like to proceed with a steroid injection at this time The risks and benefits of a steroid injection including but not limited to risk of damage to blood vessels, nerves, tendons, infection, skin bleaching, failure to improve symptoms, increased pain, and possible need for further injections or other intervention were discussed with the patient and the patient wishes to proceed with the steroid injection. Once consent was obtained, I aseptically prepped the area over the anterolateral joint line of the left knee. I then injected the area over the lateral epicondyle with a combination of 80 mg of dexamethasone and 8 mL of 1% lidocaine. The patient tolerated the procedure well with no complications. If the patient continues to experience symptoms over the following few weeks or months, they can make an appointment to return and discuss alternative treatment measures, such as physical therapy. Follow-up prn Coding Level of Care Code New Pt Level 3 (05625) Diagnoses Osteoarthritis of left knee M17.12
== END 2024-08-09 15:07 | disposition home or self-care (01) ==
LOC: HO.HOS 14:04
PROVIDERS: PCP Internal Medicine
DX: M17.12 Unilateral primary osteoarthritis, left knee (principal)
CPT/HCPCS: 20610; 99203

== ENCOUNTER → 2024-08-09 14:04 | Outpatient (BNVA) | payer BC, SELFPAY | PROVIDERS: PCP Internal Medicine | DX: M17.12 Unilateral primary osteoarthritis, left knee (principal) | CPT/HCPCS: 20610; J1010 ==

== ENCOUNTER 2025-02-01 06:35 | Outpatient (REF) | payer OTHER, SELFPAY ==
--- OUTSIDE RECORDS SUMMARY | 2025-02-01 06:40 | XMS_ITS | Encounter Summary ---
Author Organization [facility] Address [address] [place] [address] Care Team Providers Care Second Ride Fare Collector Name Role Phone Ibeth Simmons MD Primary Care Provider [phone] Ana Lara MD Primary Care Provider Unavail able Ana Lara MD Primary Care Provider Unavail able Tiesha Garduno MD Primary Care Provider Unavailable Chelsea Bar Md, MD Primary Care Provider Unavailable Encounter Details Date Type Department Care Team Description 10/24/2015 Pt. Non Urgent Medic al Question Adult Medicine [address] [address] Annette Stratton PA-C Social History Tobacco Use Types Packs/Day Years Used Date Smoking Tobacco: Former Smokeless Tobacco: Never Comments:quit a year ago Alcohol Use Standard Drinks/Week Comments Yes 0 (1 standard drink = 0.6 oz pur e alcohol) rare Sex Assigned at Date Recorded Not on file documented as of this encounter Progress Notes * Tana Escobar M.A. - 10/25/2015 9:20 AM ESTFrom: Roxann Valentin To: Annette Stratton PA-C Sent: 10/24/2015 8:40 PM EST Subject: Labs Hi, was waiting for a call about the results. Im guessing they were normal or you would have calledotherwise. Could you let me know please. Thanks documented in this encounter Plan of Treatment Not on file documented as of this encounter Visit Diagnoses Not on filedocumented in this encounter Care Teams Second Ride Fare Collector Relationship Specialty Start Date End Date Ibeth Simmons MD [address] [place] [address] PCP - General Internal Medicine 11/18/14 10/07/16 Ana Lara MD [address] [place] [address] PCP - General Internal Medicine 10/08/16 10/09/16 Ana Lara MD [address] [place] [address] PCP - General Internal Medicine 11/02/16 04/16/21 Tiesha Garduno MD [address] [place], [place] [id number] PCP - General Family Practice 10/10/16 11/01/16 Chelsea Bar MD, [address] [place] [address] PCP - General Internal Medicine 04/17/21 documented as of this encounter
--- OUTSIDE RECORDS SUMMARY | 2025-02-01 06:40 | XMS_ITS | Encounter Summary ---
Author Organization [facility] Address [address] [place] [address] Care Team Providers Care Ratings Analyst Name Role Phone Chelsea Bar Md, MD Primary Care Provider Unavailable Encounter Details Date Type Department Care Team Description 01/31/2023 Transfer Records Medical Records [address] [place] [id number] Abstract, Provider Social History Tobacco Use Types Packs/Day Years Used Date Smoking Tobacco: Former Cigarettes 30 Q uit: 11/10/2009 Smokeless Tobacco: Never Comments:quit a year ago Alcohol Use Standard Drinks/Week Comments Yes 0 (1 standard drink = 0.6 oz pur e alcohol) rare Sex Assigned at Date Recorded Not on file documented as of this encounter Plan of Treatment Not on file documented as of this encounter Visit Diagnoses Not on filedocumented in this encounter Care Teams Ratings Analyst Relationship Specialty Start Date End Date Chelsea Bar MD, MD PCP - General Internal Medicine 04/17/21 documented as of this encounter
--- OUTSIDE RECORDS SUMMARY | 2025-02-01 06:40 | XMS_ITS | Encounter Summary ---
Author Organization [facility] Address [address] [place] [address] Care Team Providers Care Rheostat Assembler Name Role Phone Douglas Torres MD Primary Care Provider Unavailable Ibeth Simmons MD Primary Care Provider [phone] Ana Lara MD Primary Care Provider Unavail able Ana Lara MD Primary Care Provider Unavail able Tiesha Garduno MD Primary Care Provider Unavailable Chelsea Bar Md, MD Primary Care Provider Unavailable Encounter Details Date Type Department Care Team Description 07/05/2014 Pt. Non Urgent Medic al Question Adult Medicine [address] [address] Douglas Torres MD Social History Tobacco Use Types Packs/Day Years Used Date Smoking Tobacco: Former Smokeless Tobacco: Never Comments:quit a year ago Alcohol Use Standard Drinks/Week Comments Yes 0 (1 standard drink = 0.6 oz pur e alcohol) rare Sex Assigned at Date Recorded Not on file documented as of this encounter Progress Notes * Maya Wheeler M.A. - 07/05/2014 9:49 AM EDTFrom: Roxann Valentin To: Douglas Torres MD Sent: 07/05/2014 9:15 AM EDT Subject: Back Pain Good Morning Dr. Torres, I am going through some constant back pain again. Will the ortho dr be able to help me along with the hip or should I make an appt with you? I have been like this since Friday and its constant. I'm not comfortable sitting, standing or laying down. Thanks, Roxann Valentin documented in this encounter Plan of Treatment Not on file documented as of this encounter Visit Diagnoses Not on filedocumented in this encounter Care Teams Rheostat Assembler Relationship Specialty Start Date End Date Douglas Torres MD PCP - General Internal Medicine 02/23/1411/17 Ibeth Simmons MD [address] [place] [address] PCP - General Internal Medicine 11/18/14 10/07/16 Ana Lara MD [address] [place] [address] PCP - General Internal Medicine 10/08/16 10/09/16 Ana Lara MD [address] [place], [place] [id number] PCP - General Internal Medicine 11/02/16 04/16/21 Tiesha Garduno MD [address] [place] [address] PCP - General Family Practice 10/10/16 11/01/16 Chelsea Bar MD, [address] [place] [address] PCP - General Internal Medicine 04/17/21 documented as of this encounter
--- OUTSIDE RECORDS SUMMARY | 2025-02-01 06:40 | XMS_ITS | Encounter Summary ---
Author Organization [facility] Address [address] [place] [address] Care Team Providers Care Computer Specialist Name Role Phone Douglas Torres MD Primary Care Provider Unavailable Community, Pcp Primary Care Provider Unavailabl e Douglas Torres MD Primary Care Provider Unavailable Ibeth Simmons MD Primary Care Provider [phone] Ana Lara MD Primary Care Provider Unavail able Ana Lara MD Primary Care Provider Unavail able Tiesha Garduno MD Primary Care Provider Unavailable Chelsea Bar Md, MD Primary Care Provider Unavailable Encounter Details Date Type Department Care Team Description 01/12/2013 Spray Operator Report Medical Records [address] [place] [id number] Cristi Allen Social History Tobacco Use Types Packs/Day Years [...] on filedocumented in this encounter Care Teams Computer Specialist Relationship Specialty Start Date End Date Douglas Torres MD PCP - General Internal Medicine 10/23/1201/09 [facility], Pcp PCP - General Internal Medicine 01/31/13 02/22/14 Douglas Torres MD PCP - General Internal Medicine 02/23/1411/17 Ibeth Simmons MD [address] [place] [id number] PCP - General Internal Medicine 11/18/14 10/07/16 nAa Lara MD [address] [place] [address] PCP - General Internal Medicine 10/08/16 10/09/16 Ana Lara MD [address] [place], [place] [phone] PCP - General Internal Medicine 11/02/16 04/16/21 Tiesha Garduno MD [address] [place], [place] [phone] PCP - General Family Practice 10/10/16 11/01/16 Chelsea Bar MD, [address] [place] [address] PCP - General Internal Medicine 04/17/21 documented as of this encounter
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
--- OUTSIDE RECORDS SUMMARY | 2025-02-01 06:40 | XMS_ITS | Encounter Summary ---
Author Organization [facility] Address [address] [place] [address] Care Team Providers Care General Office Dispatcher Name Role Phone Douglas Torres MD Primary Care Provider Unavailable Ibeth Simmons MD Primary Care Provider [phone] Ana Lara MD Primary Care Provider Unavail able Ana Lara MD Primary Care Provider Unavail able Tiesha Garduno MD Primary Care Provider Unavailable Chelsea Bar Md, MD Primary Care Provider Unavailable Encounter Details Date Type Department Care Team Description 04/20/2014 Orders Only Adult Medicine [address] [address] Douglas Torres MD Social History Tobacco Use [...] on filedocumented in this encounter Care Teams General Office Dispatcher Relationship Specialty Start Date End Date Douglas Torres MD PCP - General Internal Medicine 02/23/1411/17 Ibeth Simmons MD [address] [place] [id number] PCP - General Internal Medicine 11/18/14 10/07/16 Ana Lara MD [address] [place] [address] PCP - General Internal Medicine 10/08/16 10/09/16 Ana Lara MD [address] [place] [address] PCP - General Internal Medicine 11/02/16 04/16/21 Tiesha Garduno MD [address] [place] [address] PCP - General Family Practice 10/10/16 11/01/16 Chelsea Bar MD, [address] [place] [address] PCP - General Internal Medicine 04/17/21 documented as of this encounter
--- OUTSIDE RECORDS SUMMARY | 2025-02-01 06:40 | XMS_ITS | Encounter Summary ---
Author Organization [facility] Address [address] [place] [address] Care Team Providers Care Soap Chipper Name Role Phone Douglas Torres MD Primary Care Provider Unavailable Ibeth Simmons MD Primary Care Provider [phone] Ana Lara MD Primary Care Provider Unavail able Ana Lara MD Primary Care Provider Unavail able Tiesha Garduno MD Primary Care Provider Unavailable Chelsea Bar Md, MD Primary Care Provider Unavailable Encounter Details Date Type Department Care Team Description 05/27/2014 Transfer Records Medical Records [address] [place] [id number] Abstract, Provider Social History Tobacco Use Types [...] on filedocumented in this encounter Care Teams Soap Chipper Relationship Specialty Start Date End Date Douglas Torres MD PCP - General Internal Medicine 02/23/1411/17 Ibeth Simmons MD [address] [place] [address] PCP - General Internal Medicine 11/18/14 10/07/16 Ana Lara MD [address] [place] [address] PCP - General Internal Medicine 10/08/16 10/09/16 Ana Lara MD [address] [place] [address] PCP - General Internal Medicine 11/02/16 04/16/21 Tiesha Garduno MD [address] [place] [address] PCP - General Family Practice 10/10/16 11/01/16 Chelsea Bar MD, [address] [place] [address] PCP - General Internal Medicine 04/17/21 documented as of this encounter
[2025-02-01 11:11] LABS: Creatinine Urine 220.99 mg/dL; Microalbum/Creatinine Ratio Ur 4.5 ug/mg cr (<30)
[2025-02-01 11:12] LABS: Estimated Average Glucose 126 mg/dL; Hemoglobin A1C 155.5234 umol/L; Total Hemoglobin (HGBA1C) 3663.4497 umol/L
[2025-02-01 11:44] LABS: Alanine Aminotransferase 13 U/L (0-31); Anion Gap 11 (12-20); Aspartate Amino Transferase 22 U/L (5-31); Blood Urea Nitrogen 25 mg/dL (9-16); Calcium 9.3 mg/dL (8.4-10.2); Carbon Dioxide 25 mmol/L (22-29); Chloride 108 mmol/L (96-108); Cholesterol 164 mg/dL (<200); Estimated Glomerular Filt Rate > 60; Glucose Fasting 100 mg/dL (60-99); HDL Cholesterol 37 mg/dL (>40); LDL Cholesterol Calculated 108 mg/dL (<100); Potassium 3.9 mmol/L (3.3-5.1); Sodium 140 mmol/L (135-145); Triglycerides 97 mg/dL (<150)
[2025-02-01 12:08] LABS: Vitamin D 25-OH Total 37.8 ng/mL (>30)
== END 2025-02-01 06:36 | disposition home or self-care (01) ==
LOC: HO.HMGCLDS 06:35
PROVIDERS: PCP Internal Medicine; Visit Provider Internal Medicine
DX: E66.9 Obesity, unspecified (principal); E11.9 Type 2 diabetes mellitus without complications; E78.5 Hyperlipidemia, unspecified; I10 Essential (primary) hypertension; E55.9 Vitamin D deficiency, unspecified
CPT/HCPCS: 36415; 80048; 80061; 82043; 82306; 82570; 83036; 84450; 84460

== ENCOUNTER 2025-02-04 07:57 | Outpatient (AMB) | payer OTHER, SELFPAY ==
--- NOTE | 2025-02-04 07:54 | MHC.PC.OV ---
Intake Visit Reasons: f/u labs [phone] Android Intake Note: Pt is having a telehealth visit to f/u labs Allergies No Known Allergies Allergy (Verified 02/04/25 08:23) Medication List - Last Reconciled 02/04/25 by Chelsea Bar MD celecoxib (Celebrex) 400 mg PO DAILY lisinopril 20 mg PO DAILY phentermine 37.5 mg PO DAILY simvastatin 20 mg PO BEDTIME Tobacco use date assessed: 02/04/25 Dental Screening Dental Screen Date: 02/04/25 Did you have a dental visit in the last 12 months?: No Did you have a dental problem in the last 6 months where you did not have access to dental care?: No Was dental information given to patient?: Patient has dentist HPI f/u labs [phone] Android HPI Details 51-year-old lady with history of dyslipidemia, hypertension, diabetes mellitus, diet controlled, and obesity, here today for her follow-up. She has seen here today by telehealth, had recent fasting labs done which showed higher LDL cholesterol as compared to last check and fasting blood sugar at 1 100 mg/dL with a hemoglobin A1c at 6%. She has been compliant with taking her medications, but admits to having some dietary indiscretions here and there over the past 3 months and has been for the most part sedentary. She also states that she started taking left over phentermine 37.5 mg once a day in the morning after breakfast and then does not take lunch and the next meal would be at dinner. States that she feels better on this medication and would like to continue. Denies any chest pain or palpitations or headache. She also reports toenail discoloration and thickening in almost all the toes in both feet accompanied by dry peeling skin on toes which has been present now for the last 4 months. Patient would like a referral to see podiatry [facility], [facility] Medical History (Updated 02/04/25 @ 08:21 by Chelsea Bar MD) Hypertrophic toenail Left knee pain Obesity (BMI 30-39.9) Type 2 diabetes mellitus without complication, with no history of insulin use Multilevel degenerative disc disease Carpal tunnel syndrome, bilateral Vitamin D deficiency Dyslipidemia Essential hypertension Surgical History History of lumbosacral spine surgery History of ankle surgery History of back surgery Family History Father Myocardial infarction CVD (cardiovascular disease) Mother Lymphoma Maternal Grandfather No problems noted. Maternal Grandmother No problems noted. Paternal Grandfather No problems noted. Paternal Grandmother No problems noted. Brother No problems noted. Brother No problems noted. Brother No problems noted. Sister No problems noted. Son No problems noted. Social History Housing: Apartment Alcohol intake: current Alcohol intake frequency: holidays/special occasions only Patient Tobacco Use Status: Former Tobacco user Years Smoked: 11 yrs e-Cigarette/Vaping Use: Never Used Second Hand Smoke Exposure: No service: No Current occupational status: employed Current occupation: [employer] Current occupational exposures/hazards: No Cognitive needs: No Hearing needs: No Vision needs: No Questionnaire PHQ-9 Over the last 2 weeks, how often have you been bothered by any of the following problems? 1. Little interest or pleasure in doing things: not at all 2. Feeling down, depressed, or hopeless: not at all 3. Trouble falling or staying asleep, or sleeping too much: not at all 4. Feeling tired or having little energy: not at all 5. Poor appetite or overeating: not at all 6. Feeling bad about yourself - or that you are a failure or have let yourself or your family down: not at all 7. Trouble concentrating on things, such as reading the newspaper or watching television: not at all 8. Moving or speaking so slowly that other people could have noticed. Or the opposite - being so fidgety or restless that you have been moving around a lot more than usual: not at all 9. Thoughts that you would be better off or of hurting yourself in some way: not at all Total score: 0 Depression Screening Interpretation: Negative Depression Screening Done: Yes 56692 - PHQ-9 Billing: Yes Source: Developed by Drs. Cristobal Blair, Rhonda Kitchen, Danny Tam and colleagues, with an educational louis from [employer]. Thrive Questionnaire Date Thrive assessed: 02/04/25 I am a: Patient What is your living situation today?: I have a steady place to live Within the past 12 months, did the food you bought not last and you didn't have the money to get more?: Never true Within the past 12 months, did you worry whether your food would run out before you got money to buy more?: Never true Do you have trouble paying for medicines?: No Do you have trouble getting transportation to medical appointments?: No Do you have trouble paying your heating and electricity bill?: No Do you have trouble taking care of your child, family member or friend?: No Do you have trouble with day-to-day activities such as bathing, preparing meals, shopping, managing finances, etc.?: No Are you currently unemployed and looking for a job?: No Are you interested in more education?: No Please select the resources that you would like help with: None Currently or been in a relationship where the following occur: No concerns reported THRIVE Score: 0 AUDIT C Alcohol Use Questionnaire (AUDIT-C) 3. How often do you have six or more drinks on one occasion?: Never Total Score: 0 RUTH-7 AMB Questionnaire RUTH-7 Date RUTH - 7 assessed: 02/04/25 Feeling nervous, anxious, or on edge: 0 = Not at all Not being able to stop or control worryin = Not at all Worrying too much about different things: 0 = Not at all Trouble relaxin = Not at all Being so restless that it is hard to sit still: 0 = Not at all Becoming easily annoyed or irritable: 0 = Not at all Feeling afraid as if something awful might happen: 0 = Not at all Total RUTH-7 score (0-4 normal; 5-9 mild; 10-14 moderate; 15-21 severe): 0 Source: Developed by Drs. Cristobal Blair, Rhonda Kitchen, Danny Tam and colleagues, with an educational louis from [employer]. RUTH-7 Assessment Billing RUTH-7 Assessment Tool: RUTH-7 Assessment 37978 Review of Systems Const Denies headache(s) and Denies weakness ENT Denies dizziness and Denies headache(s) Card Denies chest pain, Denies lightheadedness, Denies palpitations and Denies dyspnea Resp Denies cough and Denies dyspnea GI Denies abdominal pain, Denies change in bowel habits and Denies heartburn Musc Denies back pain and Denies joint swelling Skin/Breast Reports as per HPI Neuro Denies dizziness, Denies headache(s) and Denies weakness Psych Reports no additional complaints Endo Denies polydipsia, Denies polyuria and Denies palpitations Aller/Immun Reports no additional complaints Physical exam (Primary Care) Tobacco/Smoking Status: Tobacco use Status Tobacco use date assessed 02/04/25 02/04/25 07:55 Patient Tobacco Use Status Former Tobacco user 02/04/25 07:55 e-Cigarette/Vaping Use Never Used 02/04/25 07:55 PHQ-9: PHQ-9 Score PHQ-9: Total score 0 02/04/25 08:25 Depression Screening Interpretation: Negative Thrive Assessment: Date of Thrive Assessment Date Thrive assessed 02/04/25 02/04/25 07:56 Currently or been in a relationship where the following occur: No concerns reported Telehealth Telehealth Telehealth Platform: [employer] Location of provider rendering services: practice address Location of patient: address on file Patient Identification confirmed using: Name, : Yes Telehealth method: video Patient verbally consented to treatment: Yes Patient verbally consented to billing insurance company: Yes Patient informed of any privacy concerns related to visit: Yes Minutes spent on Phone/Video with Pt.: 20 Results Reviewed Results Reviewed: Laboratory Tests 02/01/25 06:44 Estimat Average Glucose 126 Hemoglobin A1c % 6.0 Name: Roxann Watkins Age/Sex: 59/F : 1965 Unit#: [id number] Attend Dr: Chelsea Bar MD Re02/01/25 Status: DEP [facility] Dis[facility]: SPEC : [id number] NICHOLAS: 02/01/25 STATUS: COMP REQ : [id number] RECD: 02/01/25-[address]: Chelsea Bar MD COMP: 02/01/25-1208 ENTERED: 02/01/25-[address]: ORDERED: Met Prof Fast, AST, ALT, Lipid Panel, Vitamin D 25-OH Test Result Flag Reference Sodium 140 135-145 mmol/L Potassium 3.9 3.3-5.1 mmol/L CL 108 96-108 mmol/L CO2 25 22-29 mmol/L Gap 11 L 12-20 BUN 25 H 9-16 mg/dL Creat 0.86 0.5-1.4 mg/dL eGFR > 60 Chronic Kidney Disease: Estimated GFR < 60 mL/min/1.73m2 Severe Kidney Disease: Estimated GFR < 15 mL/min/1.73m2 FBS 100 H 60-99 mg/dL A fasting glucose from 100-125 mg/dl is considered impaired (pre-diabetes). CA 9.3 8.4-10.2 mg/dL AST (GOT) 22 5-31 U/L ALT (GPT) 13 0-31 U/L Triglyceride 97 <150 mg/dL Desirable Triglyceride: less than 150 mg/dL Borderline High Triglyceride 150-199 mg/dL High Triglyceride: 200-499 mg/dL Very High Triglyceride: greater than or equal to 5OO mg/dL Cholesterol 164 <200 mg/dL Desirable Cholesterol: less than 200 mg/dL Borderline High Cholesterol: 200-239 mg/dL High Cholesterol: greater than 239 mg/dL LDL Calculated 108 H <100 mg/dL Desirable LDL: less than 100 mg/dL Near Optimal/Above Optimal LDL: 110-129 mg/dL Borderline High LDL: 130-159 mg/dL High LDL: 160-189 mg/dL Very High LDL: greater than or equal to 190 mg/dL HDL 37 L >40 mg/dL Desirable HDL: greater than 40 mg/dL Note: This HDL assay may give artificially low results in patients with liver disease. Vitamin D 25-OH 37.8 >30 ng/mL Health Based Reference Values* < 20 ng/mL Deficient 20-30 ng/mL Insufficient > 30 ng/mL Sufficient Laboratory Tests 02/01/25 06:44 Urine Creatinine 220.99 Urine Microalbumin 10.0 Microalb/Creat Ratio 4.5 Coding Level of Care Code Tele Est Pt Level 4 (06112) Diagnoses Dyslipidemia E78.5 Type 2 diabetes mellitus without complication, with no history of insulin use E11.9 Obesity (BMI 30-39.9) E66.9 Hypertrophic toenail L60.2 Deformity of toenail L60.8 Additional Codes RUTH-7 Assessment Billing - RUTH-7 Assessment Tool: RUTH-7 Assessment 94285 ([id number]) PHQ-9 - 91028 - PHQ-9 Billing: Yes ([id number]) Assessment & Plan Assessment & Plan (1) Dyslipidemia: Code(s): E78.5 - Hyperlipidemia, unspecified Category: Medical Plan: Reviewed recent fasting lab results with patient with slightly elevated LDL cholesterol as compared to last check. Reinforced importance of following a low-cholesterol diet and start getting regular exercise. Will continue on simvastatin 20 mg at bedtime. (2) Type 2 diabetes mellitus without complication, with no history of insulin use: Code(s): E11.9 - Type 2 diabetes mellitus without complications Category: Medical Plan: Latest hemoglobin A1c at 6% with urine microalbumin negative. Continue with adherence to healthy eating habits and regular exercise. Continue with lisinopril and simvastatin. Reinforced importance of getting diabetes retinopathy screening yearly, referral to podiatry done (3) Obesity (BMI 30-39.9): Code(s): E66.9 - Obesity, unspecified Category: Medical Plan: Will continue on phentermine 37.5 mg to take 1 tablet 2 hours after eating breakfast. Patient denies any adverse effects from taking medication. Combined this with adherence to healthy eating habits and getting regular exercise at least 30 minutes of cardio exercise daily. Will schedule her an appointment for office follow-up in March 2025 (4) Hypertrophic toenail: Code(s): L60.2 - Onychogryphosis Category: Medical Plan: Podiatry consult ordered (5) Deformity of toenail: Code(s): L60.8 - Other nail disorders Plan: Podiatry consult ordered Orders: Referrals Podiatry Referral E11.9 - Type 2 diabetes mellitus without complications, L60.2 - Onychogryphosis, L60.8 - Other nail disorders Medications: New phentermine must administer 30 minutes before or 1-2 hours after breakfast 37.5 mg PO DAILY 30 caps 1RF E66.9 - Obesity, unspecified
== END 2025-02-04 09:38 | disposition home or self-care (01) ==
LOC: HO.HMCC 07:57
PROVIDERS: PCP Internal Medicine; Visit Provider Internal Medicine
DX: E11.69 Type 2 diabetes mellitus with other specified complication (principal); E78.5 Hyperlipidemia, unspecified; E66.9 Obesity, unspecified; L60.2 Onychogryphosis

== ENCOUNTER → 2025-02-04 07:57 | Outpatient (BNVA) | payer OTHER, SELFPAY | PROVIDERS: PCP Internal Medicine; Visit Provider Internal Medicine | DX: E78.5 Hyperlipidemia, unspecified (principal); E11.9 Type 2 diabetes mellitus without complications; E66.9 Obesity, unspecified; L60.2 Onychogryphosis; L60.8 Other nail disorders; Z79.899 Other long term (current) drug therapy | CPT/HCPCS: 96127 ==